=== PATIENT | female | born 1930 | race Caucasian/White ===

== ENCOUNTER 2018-02-18 17:05 | Emergency (ER) | payer MEDICARE, BC ==
[2018-02-18 17:14] VITALS: BP 169/70; PULSE 69; RESP 18; TEMP 98
[2018-02-18] MEDS ORDERED: DIPH,PERTUS(ACELL)TETVAC-LF 0.5 ML VIAL IM ONE (17:35)
--- NOTE | 2018-02-18 17:38 | ED ---
General Adult HPI - General Chief complaint: Extremity Injury, Upper Stated complaint: left arm injury Time Seen by Provider: 02/18/18 17:20 Source: patient, RN notes reviewed Mode of arrival: ambulatory Limitations: no limitations - History of Present Illness Initial comments: 87-year-old female presents to the emergency department for a chief complaint of skin tear 2 days. Patient states she was walking through her house when she bumped her arm on something. Patient denies any pain in the arm besides over the skin tear site. Patient did not sustain any other injuries Patient does not believe her tetanus is up-to-date. Patient has no other complaints at this time including shortness of breath, chest pain, abdominal pain, nausea or vomiting, headache, or visual changes. - Related Data Allergies Allergy/AdvReac Type Severity Reaction Status Date / Time No Known Allergies Allergy Verified 02/18/18 17:14 Review of Systems ROS Statement: Those systems with pertinent positive or pertinent negative responses have been documented in the HPI. ROS Other: All systems not noted in ROS Statement are negative. 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 Absent: scleral icterus, conjunctival injection ENT exam: Present: normal exam, mucous membranes moist Neck exam: Present: normal inspection. Absent: tenderness, meningismus, lymphadenopathy Respiratory exam: Present: normal lung sounds bilaterally. Absent: respiratory distress, wheezes, rales, rhonchi, stridor Cardiovascular Exam: Present: regular rate, normal rhythm, normal heart sounds. Absent: systolic murmur, diastolic murmur, rubs, gallop, clicks Extremities exam: Present: full ROM (Full range of motion of the left upper extremities including the elbow wrist and digits), tenderness (No tenderness in the elbow forearm wrist or hand), normal capillary refill (Capillary refill less than 2 seconds and radial pulse 2+ in the left upper extremity), other ( There is a 2.5 cm skin tear with mild ecchymosis about 5 cm x 4 cm surrounding. No spreading redness or cellulitis. No streaking redness up the arm. No drainage.). Absent: joint swelling Course Vital Signs 02/18/18 17:11 Temperature 98.0 F Pulse Rate 69 Respiratory 18 Rate Blood Pressure 169/70 O2 Sat by Pulse 97 Oximetry Medical Decision Making - Medical Decision Making 87-year-old female since to the emergency department for a chief complaint of skin tear over the left arm. Patient has full range motion of the elbow wrist and hand. No tenderness. Patient has a 2.5 cm skin tear. No spreading redness streaking redness or drainage. No signs of infection. Patient was given tetanus in the emergency department. Wound was cleaned and Steri- Stripped closed by Ebony LOPEZ. Patient was educated to let Steri-Strips fall off on their own. She will keep it clean and dry. She will follow up with primary care in 1-2 days. Discussed return parameters including those for infection extensively with patient. Disposition Clinical Impression: Skin tear Disposition: HOME SELF-CARE Condition: Good Instructions: Skin Tear (ED) Additional Instructions: Please let Steri-Strips fall off on their own. Please keep the area clean and dry. Please return to the emergency department if you have any worsening symptoms or signs of infection such as spreading redness or streaking redness up the arm. Otherwise follow-up with primary care in 1-2 days Is patient prescribed a controlled substance at d/c from ED?: No Referrals: Leeanne Carpenter DO [Primary Care Provider] - 1-2 days Time of Disposition: 17:58
== END 2018-02-18 18:05 | disposition home or self-care (01) ==
LOC: EC 17:05
DX: S41.112A Laceration without foreign body of left upper arm, initial encounter (principal); Z23 Encounter for immunization; W22.8XXA Striking against or struck by other objects, initial encounter; Y93.01 Activity, walking, marching and hiking; Y92.009 Unspecified place in unspecified non-institutional (private) residence as the place of occurrence of the external cause
CPT/HCPCS: 12001; 90471; 90715; 99283

== ENCOUNTER 2018-07-31 16:09 | Inpatient (IN) | payer MEDICARE, BC ==
[2018-07-31] MEDS ORDERED: MORPHINE SULFATE 4 MG/ML SYRINGE IVP STA (17:21)
[2018-07-31] MEDS ORDERED: ONDANSETRON 4 MG/2 ML VIAL IVP STA (17:21)
--- NOTE | 2018-07-31 17:59 | ED ---
Fall HPI - General Chief Complaint: Fall Stated Complaint: FALL Time Seen by Provider: 07/31/18 17:00 Source: patient, EMS Mode of arrival: EMS - History of Present Illness Initial Comments: 87-year-old female patient presents to the emergency department today for evaluation of left hip pain after expressing a fall. Patient states around 3: 00 she was coming into the house when she attempted to use her cane to open the door, states that the cane pushed her backwards and she fell landing on the left hip. Patient denies hitting her head or losing consciousness during the fall. She states that she did land on her elbows and did sustain wounds however she denies any difficulty with range of motion to the elbows her significant pain to the joints. She denies any numbness or tingling to her upper or lower extremities. She denies any headache, dizziness, weakness, nausea, vomiting, back pain, or neck pain. States her last tetanus vaccine was in the summer of 2017. Patient denies any chest pain, shortness of breath, abdominal pain, or difficulties with bowel movements or urination. - Related Data Home Medications Medication Instructions Recorded Confirmed Aspirin [[place] Aspirin EC] 81 mg PO HS 07/31/18 07/31/18 Atorvastatin [Lipitor] 40 mg PO HS 07/31/18 07/31/18 Biotin 10,000 mcg PO DAILY 07/31/18 07/31/18 Calcium Carbonate [Calcium] 600 mg PO DAILY 07/31/18 07/31/18 Cetirizine HCl [Zyrtec] 10 mg PO HS 07/31/18 07/31/18 Clopidogrel Bisulfate [Plavix] 75 mg PO DAILY 07/31/18 07/31/18 Gabapentin [Neurontin] 100 mg PO BID 07/31/18 07/31/18 HYDROcodone/APAP 5-325MG [[place] 1 - 2 tab PO HS PRN 07/31/18 07/31/18 5-325] Inulin/Chromium Picolinate [Fiber 1 tab PO DAILY 07/31/18 07/31/18 Gummies Chew] L.acidoph,Paracasei, B.lactis 1 cap PO DAILY 07/31/18 07/31/18 [Probiotic] Levothyroxine Sodium [Synthroid] 75 mcg PO DAILY 07/31/18 07/31/18 Melatonin 3 mg PO HS 07/31/18 07/31/18 Multivit/Folic Acid/Vit K1 1 tab PO DAILY 07/31/18 07/31/18 [One-A-Day Women's 50 Plus Tab] Primidone [Mysoline] 50 - 100 mg PO HS 07/31/18 07/31/18 amLODIPine [Norvasc] 5 mg PO DAILY 07/31/18 07/31/18 Allergies Allergy/AdvReac Type Severity Reaction Status Date / Time No Known Allergies Allergy Verified 07/31/18 19:53 Review of Systems ROS Statement: Those systems with pertinent positive or pertinent negative responses have been documented in the HPI. ROS Other: All systems not noted in ROS Statement are negative. 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 Vital signs upon presentation are temperature 96.8F, pulse 76, respirations 16, blood pressure 172/81, pulse ox 100% on room air) Head exam: Present: atraumatic, normocephalic, normal inspection Eye exam: Present: normal appearance, PERRL, EOMI. Absent: scleral icterus, conjunctival injection, periorbital swelling ENT exam: Present: normal exam, normal oropharynx, mucous membranes moist Neck exam: Present: normal inspection, full ROM, other (Nontender, no step-off, no deformity to firm midline palpation of the posterior cervical spine. Full range of motion without pain or limitation.). Absent: tenderness, meningismus, lymphadenopathy Respiratory exam: Present: normal lung sounds bilaterally. Absent: respiratory distress, wheezes, rales, rhonchi, stridor Cardiovascular Exam: Present: regular rate, normal rhythm, normal heart sounds. Absent: systolic murmur, diastolic murmur, rubs, gallop, clicks GI/Abdominal exam: Present: soft, normal bowel sounds. Absent: distended, tenderness, guarding, rebound, rigid Extremities exam: Present: full ROM, tenderness (Tenderness over the left anterior hip joint.), normal capillary refill, other (Patient has skin tear to the bilateral extensor surface of the elbow. Patient has full range of motion to the elbow with no bony tenderness. Skin to the upper extremities is pink, warm, and dry. Cap refills less than 3 seconds. Radial pulses are 2+ and equal bilaterally. Patient has external rotation and shortening of the left leg. Tenderness over the left anterior hip joint. Skin to the left leg is pink , warm, and dry. Cap refills less than 3 seconds. Pedal and posttibial pulses are 2+ and equal bilaterally.). Absent: normal inspection, pedal edema, joint swelling, calf tenderness Back exam: Present: normal inspection, other (Nontender, no step-off, no deformity to firm midline palpation of the thoracic and lumbar vertebrae. Full range of motion without pain or limitation.). Absent: vertebral tenderness Neurological exam: Present: alert, oriented X3, CN II-XII intact Psychiatric exam: Present: normal affect, normal mood Skin exam: Present: warm, dry, intact, normal color. Absent: rash Course Vital Signs 07/31/18 07/31/18 07/31/18 16:14 18:02 19:55 Temperature 96.8 F L 97.0 F L Pulse Rate 76 77 74 Respiratory 16 16 16 Rate Blood Pressure 172/81 136/64 152/61 O2 Sat by Pulse 100 98 97 Oximetry Medical Decision Making - Medical Decision Making 87-year-old female patient presented to the emergency department today for evaluation of left hip pain after expressing a fall at home. Physical examination did reveal tenderness over the left anterior hip joint. Patient did have some shortening or rotation of the leg. Neurovascular status is intact. X-ray did show an intertrochanteric fracture to the left hip. Labs, EKG, chest x-ray were obtained for presurgical clearance. I did discuss the case with Dr. jose who feels the patient is stable for surgery. Dr. Skelton is the accepting physician and will perform surgery tomorrow at 12:00. Patient and family are aware of plan and are agreeable. - Lab Data Result diagrams: 07/31/18 16:26 07/31/18 16:26 Lab Results 07/31/18 07/31/18 07/31/18 Range/Units 16:26 16:26 16:26 WBC 5.9 (3.8-10.6) k/uL RBC 4.13 (3.80-5.40) m/uL Hgb 12.3 (11.4-16.0) gm/dL Hct 38.0 (34.0-46.0) % MCV 91.9 (80.0-100.0) fL MCH 29.6 (25.0-35.0) pg MCHC 32.3 (31.0-37.0) g/dL RDW 13.1 (11.5-15.5) % Plt Count 185 (150-450) k/uL Neutrophils % 59 % Lymphocytes % 31 % Monocytes % 5 % Eosinophils % 3 % Basophils % 0 % Neutrophils # 3.5 (1.3-7.7) k/uL Lymphocytes # 1.8 (1.0-4.8) k/uL Monocytes # 0.3 (0-1.0) k/uL Eosinophils # 0.2 (0-0.7) k/uL Basophils # 0.0 (0-0.2) k/uL PT 10.6 (9.0-12.0) sec INR 1.0 (<1.2) APTT 25.1 (22.0-30.0) sec Sodium 136 L (137-145) mmol/L Potassium 4.4 (3.5-5.1) mmol/L Chloride 102 (98-107) mmol/L Carbon Dioxide 25 (22-30) mmol/L Anion Gap 9 mmol/L BUN 11 (7-17) mg/dL Creatinine 0.67 (0.52-1.04) mg/dL Est GFR (CKD-EPI)AfAm >90 (>60 ml/min/1.73 sqM) Est GFR (CKD-EPI)NonAf 79 (>60 ml/min/1.73 sqM) Glucose 103 H (74-99) mg/dL Calcium 9.1 (8.4-10.2) mg/dL Total Bilirubin 0.6 (0.2-1.3) mg/dL AST 39 H (14-36) U/L ALT 42 (9-52) U/L Alkaline Phosphatase 89 (38-126) U/L Total Protein 7.4 (6.3-8.2) g/dL Albumin 4.3 (3.5-5.0) g/dL Urine Color Urine Appearance (Clear) Urine pH (5.0-8.0) Ur Specific [place] (1.001-1.035) Urine Protein (Negative) Urine Glucose (UA) (Negative) Urine Ketones (Negative) Urine Blood (Negative) Urine Nitrite (Negative) Urine Bilirubin (Negative) Urine Urobilinogen (<2.0) mg/dL Ur Leukocyte Esterase (Negative) Urine RBC (0-5) /hpf Urine WBC (0-5) /hpf Urine Mucus (None) /hpf Blood Type Blood Type Confirm Blood Type Recheck Antibody Screen Spec Expiration Date 07/31/18 07/31/18 07/31/18 Range/Units 16:26 17:50 18:30 WBC (3.8-10.6) k/uL RBC (3.80-5.40) m/uL Hgb (11.4-16.0) gm/dL Hct (34.0-46.0) % MCV (80.0-100.0) fL MCH (25.0-35.0) pg MCHC (31.0-37.0) g/dL RDW (11.5-15.5) % Plt Count (150-450) k/uL Neutrophils % % Lymphocytes % % Monocytes % % Eosinophils % % Basophils % % Neutrophils # (1.3-7.7) k/uL Lymphocytes # (1.0-4.8) k/uL Monocytes # (0-1.0) k/uL Eosinophils # (0-0.7) k/uL Basophils # (0-0.2) k/uL PT (9.0-12.0) sec INR (<1.2) APTT (22.0-30.0) sec Sodium (137-145) mmol/L Potassium (3.5-5.1) mmol/L Chloride (98-107) mmol/L Carbon Dioxide (22-30) mmol/L Anion Gap mmol/L BUN (7-17) mg/dL Creatinine (0.52-1.04) mg/dL Est GFR (CKD-EPI)AfAm (>60 ml/min/1.73 sqM) Est GFR (CKD-EPI)NonAf (>60 ml/min/1.73 sqM) Glucose (74-99) mg/dL Calcium (8.4-10.2) mg/dL Total Bilirubin (0.2-1.3) mg/dL AST (14-36) U/L ALT (9-52) U/L Alkaline Phosphatase (38-126) U/L Total Protein (6.3-8.2) g/dL Albumin (3.5-5.0) g/dL Urine Color Light Yellow Urine Appearance Clear (Clear) Urine pH 7.0 (5.0-8.0) Ur Specific [place] 1.005 (1.001-1.035) Urine Protein Negative (Negative) Urine Glucose (UA) Negative (Negative) Urine Ketones Negative (Negative) Urine Blood Negative (Negative) Urine Nitrite Negative (Negative) Urine Bilirubin Negative (Negative) Urine Urobilinogen <2.0 (<2.0) mg/dL Ur Leukocyte Esterase Trace H (Negative) Urine RBC 1 (0-5) /hpf Urine WBC 4 (0-5) /hpf Urine Mucus Rare H (None) /hpf Blood Type O Positive Blood Type Confirm O Positive Blood Type Recheck CABO Indicated Antibody Screen NEGATIVE Spec Expiration Date 08/03/20182325 - EKG Data -: EKG Interpreted by Al EKG Comments: EKG obtained in 1934 shows sinus rhythm with frequent PVCs. Left axis deviation. Ventricular rate is 75, WV interval 200, QR moravian 90, QT 410, QTC 457. No evidence of ST elevation or depression. - Radiology Data Radiology results: report reviewed, image reviewed Single AP view of the pelvis and 2 views of the left hip are obtained. Report was reviewed in its entirety. Impression by Dr. Hernandez shows intertrochanteric fracture described to the proximal left femur. One view x-ray of the chest is obtained. Report was reviewed in its entirety. Impression by Dr. Hernandez shows no acute process. Disposition Clinical Impression: Intertrochanteric fracture of left hip Disposition: ADMITTED IP TO THIS [facility] Condition: Serious Decision to Admit Reason: Admit from EC Decision Date: 07/31/18 Decision Time: 20:07
[2018-07-31 18:20] LABS: Appearance,Urine Clear (Clear); Bilirubin,Urine Negative (Negative); Blood,Urine Negative (Negative); Color,Urine Light Yellow; Glucose,Urine (UA) Negative (Negative); Ketones,Urine Negative (Negative); Leukocyte Esterase,Urine Trace (Negative); Mucus,Urine Rare /hpf; Nitrite,Urine Negative (Negative); Protein,Urine Negative (Negative); RBC,Urine 1 /hpf (0-5); Specific Gravity,Urine 1.005 (1.001-1.035); Urobilinogen,Urine <2.0 mg/dL (<2.0); WBC,Urine 4 /hpf (0-5)
--- NOTE | 2018-07-31 18:33 | XR ---
EXAMINATION TYPE: XR Hip LT and AP Pelvis DATE OF EXAM: 07/31/2018 COMPARISON: NONE HISTORY: Pain TECHNIQUE: A single AP view of the pelvis is obtained. Two views of the left hip are obtained. FINDINGS: There is no acute fracture/dislocation evident in the pelvis. The hip and sacroiliac join ts appear symmetric and unremarkable. The overlying soft tissue appears unremarkable. Arthropathy no colt in the right hip, there may be underlying femoral acetabular impingement. Surgical clips present in the right lower quadrant. Two views of left hip show intertrochanteric fracture with displacement of the lesser trochanter. No focal lytic or sclerotic lesion seen in the proximal left femur. Arthropathy changes are present wi thin the left hip. There is associated soft tissue swelling. The overlying soft tissue is unremarkabl e. IMPRESSION: Intertrochanteric fracture as described proximal left femur, correlate for appropriate hi story.
[2018-07-31 18:52] LABS: Basophils % (A) 0 %; Eosinophils # (A) 0.2 k/uL (0-0.7); Eosinophils % (A) 3 %; HGB 12.3 gm/dL (11.4-16.0); Lymphocytes # (A) 1.8 k/uL (1.0-4.8); Lymphocytes % (A) 31 %; MCH 29.6 pg (25.0-35.0); MCHC 32.3 g/dL (31.0-37.0); MCV 91.9 fL (80.0-100.0); Mean Platelet Volume 6.5; Monocytes # (A) 0.3 k/uL (0-1.0); Monocytes % (A) 5 %; Neutrophils # (A) 3.5 k/uL (1.3-7.7); Neutrophils % (A) 59 %; Platelet Count 185 k/uL (150-450); RBC 4.13 m/uL (3.80-5.40); RDW 13.1 % (11.5-15.5); WBC 5.9 k/uL (3.8-10.6)
[2018-07-31] MEDS ORDERED: ONDANSETRON 4 MG/2 ML VIAL IVP PRN (18:55)
[2018-07-31] MEDS ORDERED: NALOXONE 0.4 MG/ML 1 ML VIAL IV PRN (18:55)
[2018-07-31 18:59] LABS: Partial Thromboplastin Time 25.1 sec (22.0-30.0); Prothrombin Time 10.6 sec (9.0-12.0)
[2018-07-31 19:01] LABS: ALT 42 U/L (9-52); AST 39 U/L (14-36); Albumin 4.3 g/dL (3.5-5.0); Alkaline Phosphatase 89 U/L (38-126); Anion Gap 9 mmol/L; Blood Urea Nitrogen 11 mg/dL (7-17); Calcium 9.1 mg/dL (8.4-10.2); Carbon Dioxide 25 mmol/L (22-30); Chloride 102 mmol/L (98-107); Glucose 103 mg/dL (74-99); Sodium 136 mmol/L (137-145); Total Bilirubin 0.6 mg/dL (0.2-1.3); Total Protein 7.4 g/dL (6.3-8.2)
[2018-07-31 19:16] LABS: Potassium 4.4 mmol/L (3.5-5.1)
--- NOTE | 2018-07-31 19:39 | XR ---
EXAMINATION TYPE: XR chest 1V portable DATE OF EXAM: 07/31/2018 COMPARISON: NONE HISTORY: Trauma and pain TECHNIQUE: Single frontal view of the chest is obtained. FINDINGS: There is no focal air space opacity, pleural effusion, or pneumothorax seen. The cardiac silhouette size is within normal limits. The osseous structures are intact. There is overlying glenn fact. Surgical clips in the right upper quadrant. The aorta is dense. IMPRESSION: No acute process.
[2018-07-31] MEDS: SODIUM CHLORIDE 0.9% 1,000 ML IV SCH (19:50)
[2018-07-31] MEDS: MORPHINE SULFATE 4 MG/ML SYRINGE IV PRN (21:50)
[2018-07-31] MEDS: LORATADINE 10 MG TAB PO SCH (22:09)
[2018-07-31] MEDS: GABAPENTIN 100 MG CAP PO SCH (22:09)
[2018-07-31] MEDS: ATORVASTATIN 40 MG TAB PO SCH (22:09)
[2018-07-31] MEDS: MELATONIN 3 MG TABLET PO SCH (22:09)
[2018-07-31] MEDS: PRIMIDONE 50 MG TAB PO SCH (22:09)
[2018-08-01] MEDS: MORPHINE SULFATE 4 MG/ML SYRINGE IV PRN ×2 (02:13→11:47)
[2018-08-01] MEDS: LEVOTHYROXINE 75 MCG TAB PO SCH (04:57)
[2018-08-01] MEDS ORDERED: NON-FORMULARY DRUG (Inulin/Chromium Picolinate [Fiber Gummies Chew] 1 TAB) PO SCH (09:00)
[2018-08-01] MEDS ORDERED: NON-FORMULARY DRUG (Biotin [Biotin] 10,000 MCG) PO SCH (09:00)
[2018-08-01] MEDS: GABAPENTIN 100 MG CAP PO SCH ×2 (09:26→20:11)
[2018-08-01] MEDS: amLODIPine 5 MG TAB PO SCH (09:26)
[2018-08-01] MEDS: CALCIUM CARBONATE 500 MG CHEWABLE PO SCH (09:26)
[2018-08-01] MEDS: LIPASE 5,000/PROTEASE 17,000/AMYLASE 24,000 PO SCH (09:26)
--- NOTE | 2018-08-01 10:49 | P.HPOR ---
History of Present Illness H&P Date: 08/01/18 Chief Complaint: Left hip fracture This is a very pleasant 87-year-old female with a past medical history of CVA, 100% blockage of the carotid artery, aortic valve disease that presented to the emergency department last night with complaints of left hip pain following a fall. Patient states she was coming in the house after getting the mail and was trying to close a door with her cane when she lost her footing and fell. Patient states she landed on her left hip. She also fell onto her elbows. She denies hitting her head. She did not lose consciousness. She was not able to get up, she required help. She was unable to ambulate after the fall. Patient subsequently presented to the [facility] ED for evaluation, where she was found to have a left intertrochanteric hip fracture. Currently, patient states she has pain diffusely in the left hip, she states this pain is manageable if she does not move the hip. She denies chest pain, shortness of breath, nausea, vomiting, dizziness, back pain, or neck pain. Review of Systems Please see HPI. 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 History of Any Multi-Drug Resistant Organisms: None Reported Past Surgical History: Appendectomy, Cholecystectomy, Orthopedic Surgery Additional Past Surgical History / Comment(s): Left shoulder replacement Past Anesthesia/Blood Transfusion Reactions: No Reported Reaction Past Psychological History: No Psychological Hx Reported Smoking Status: Never smoker Past Alcohol Use History: Occasional Past Drug Use History: None Reported - Past Family History Mother Family Medical History: Cancer Father Family Medical History: Cancer Medications and Allergies Home Medications Medication Instructions Recorded Confirmed Type Aspirin [[place] Aspirin EC] 81 mg PO HS 07/31/18 07/31/18 History Atorvastatin [Lipitor] 40 mg PO HS 07/31/18 07/31/18 History Biotin 10,000 mcg PO DAILY 07/31/18 07/31/18 History Calcium Carbonate [Calcium] 600 mg PO DAILY 07/31/18 07/31/18 History Cetirizine HCl [Zyrtec] 10 mg PO HS 07/31/18 07/31/18 History Clopidogrel Bisulfate [Plavix] 75 mg PO DAILY 07/31/18 07/31/18 History Gabapentin [Neurontin] 100 mg PO BID 07/31/18 07/31/18 History HYDROcodone/APAP 5-325MG [[place] 1 - 2 tab PO HS PRN 07/31/18 07/31/18 History 5-325] Inulin/Chromium Picolinate [Fiber 1 tab PO DAILY 07/31/18 07/31/18 History Gummies Chew] L.acidoph,Paracasei, B.lactis 1 cap PO DAILY 07/31/18 07/31/18 History [Probiotic] Levothyroxine Sodium [Synthroid] 75 mcg PO DAILY 07/31/18 07/31/18 History Melatonin 3 mg PO HS 07/31/18 07/31/18 History Multivit/Folic Acid/Vit K1 1 tab PO DAILY 07/31/18 07/31/18 History [One-A-Day Women's 50 Plus Tab] Primidone [Mysoline] 50 - 100 mg PO HS 07/31/18 07/31/18 History amLODIPine [Norvasc] 5 mg PO DAILY 07/31/18 07/31/18 History Allergies Allergy/AdvReac Type Severity Reaction Status Date / Time No Known Allergies Allergy Verified 07/31/18 19:53 Physical Examination On examination, the patient is sitting up in bed in no acute distress. Patient is alert and orientated x3. On inspection of the left hip, there is no ecchymosis or laceration of the anterior hip. Left lower extremity is externally rotated. There is pain on palpation of the posterior hip. Neurovascular is intact of the left lower extremity. Sensation is intact to light touch of the left lower extremity. Dorsalis pedis pulse +2 bilaterally. Capillary refill less than 3 seconds on the great toes bilaterally. On inspection of the right and left elbows, there are clean and intact bandages in place. No pain with ROM. On inspection of the left wrist, there is ecchymosis present. Left radial pulse +2. No pain on palpation of the left wrist. Patient able to perform full ROM of the left wrist, no pain with PROM of the wrist. Results Left Hip/pelvis xray 05/31/19 - Left intertrochanteric fracture of the proximal femur - Labs Labs: Abnormal Lab Results - Last 24 Hours (Table) 01/12/19 01/12/19 Range/Units 16:26 17:50 Sodium 136 L (137-145) mmol/L Glucose 103 H (74-99) mg/dL AST 39 H (14-36) U/L Ur Leukocyte Esterase Trace H (Negative) Urine Mucus Rare H (None) /hpf H & H 07/31/18 Range/Units 16:26 Hgb 12.3 (11.4-16.0) gm/dL Hct 38.0 (34.0-46.0) % Coagulation 07/31/18 Range/Units 16:26 INR 1.0 (<1.2) Result Diagrams: 07/31/18 16:26 07/31/18 16:26 Assessment and Plan Assessment: Left hip intertrochanteric fracture Plan: - Discussed clinical and xray findings with the patient and family. Explained this fracture requires surgery. Patient and family verbalized understanding and agreement. - We will plan for a left short IT nail today with Dr. Skelton, pending medical clearance and consent. - Patient to remain non-weight bearing of the left lower extremity, NPO diet. - Patient discussed with Dr. Skelton
[2018-08-01] MEDS: MULTIVITAMINS, THERA 1 EACH TAB PO SCH (11:45)
[2018-08-01] MEDS ORDERED: PROPOFOL 10 MG/ML 20 ML VIAL IV ONE (12:30)
[2018-08-01] MEDS ORDERED: fentaNYL (PF) 50 MCG/ML 2 ML AMP ONE (12:30)
[2018-08-01] MEDS ORDERED: GLYCOPYRROLATE 0.2 MG/ML 2 ML VIAL ONE (12:30)
[2018-08-01] MEDS ORDERED: NEOSTIGMINE 1 MG/ML 10 ML VIAL ONE (12:30)
[2018-08-01] MEDS ORDERED: PHENYLEPHRINE-0.9% NACL SYG 1 MG/10 ML SYRINGE ONE (12:30)
[2018-08-01] MEDS ORDERED: MIDAZOLAM 2 MG/2 ML VIAL ONE (12:30)
[2018-08-01] MEDS ORDERED: ONDANSETRON 4 MG/2 ML VIAL ONE (12:30)
[2018-08-01] MEDS ORDERED: ROCURONIUM BROMIDE 10 MG/ML 10 ML VIAL IV ONE (12:30)
[2018-08-01] MEDS ORDERED: LIDOCAINE 1% INJ 10MG/ML (20 ML MDV) ONE (12:30)
[2018-08-01] MEDS ORDERED: IV FLUID CONTINUATION 900 ML IV ONE (12:30)
--- NOTE | 2018-08-01 13:52 | FL ---
FLUOROSCOPY 1 minute and 30 seconds of fluoroscopy time were utilized during left hip pinning. 2 images document the procedure.
[2018-08-01] MEDS: MORPHINE SULFATE 4 MG/ML SYRINGE IVP ONE ×3 (14:10→14:33)
--- NOTE | 2018-08-01 14:19 | P.OP ---
Date of Procedure: 08/01/18 Preoperative Diagnosis: 1. Minimally displaced left basocervical femoral neck fracture 2. Pre-existing and asymptomatic left hip arthritis 3. CVA 4. Left carotid stenosis 5. Thyroid disorder 6. Aortic valve pathology Postoperative Diagnosis: Same Procedure(s) Performed: Operative fixation of left basicervical intertrochanteric hip fracture with short intramedullary hip screw Implants: Synthes TFN Anesthesia: GETA Surgeon: Felipe Skelton [employer] Representatives #1: Laverne Moralez Estimated Blood Loss (ml): 50 IV fluids (ml): 700 Pathology: other (reamings sent to pathology) Condition: stable Disposition: PACU Indications for Procedure: The patient is a very pleasant 87-year-old female who sustained a ground-level fall yesterday and was brought to the ER and found to have a left hip fracture. She was admitted under my care and cleared for surgery by internal medicine. I met with the patient and her family preoperatively to discuss treatment options. Her x-rays showed a minimally displaced basocervical intertrochanteric hip fracture and pre-existing hip arthritis. The patient states that she did not have any problems with her hip prior to surgery, but did have knee arthritis. She has been seeing Dr. Tommy Angeles for her knees. Since her hip pain was asymptomatic prior to surgery and her hip fracture is minimally displaced I recommended operative fixation of her hip fracture with an intramedullary hip screw as opposed to arthroplasty. The patient and her family agreed to this. We discussed potential risks and competitions of surgery including but not limited to risk of anesthesia, superficial infection, deep infection, delayed wound healing, intraoperative fracture, postoperative fracture, failure of the implant with varus collapse of the hip, symptomatic hip arthritis, DVT, PE, acute coronary event, stroke, difficulty ambulating following surgery, urinary tract infection, pneumonia, and inability to ambulate , decreased level of function following surgery, and possibly loss of life or limb. The patient and her family voiced understanding of these potential complications and also acknowledge other less common complications. The provided their consent to go forward with surgery. Description of Procedure: The patient was identified in preoperative holding and the correct left leg was marked with my initials. I reviewed the consent form with the patient and her family. All their questions were answered. The patient was then brought back to the operating room. While still on her gurney a general anesthetic and preoperative antibiotics were administered. Once the patient was under anesthesia she was carefully transferred from the [facility] onto a fracture table. A perineal post was placed. Due to her right hip arthritis and limited flexibility of the hip the right leg was extended and secured to the beam of the fracture table with a pillow and Coban. The affected left leg was placed in the boot of the fracture table and secured with an Vasu wrap. Prior to starting surgery timeout was performed identifying the correct patient, operative extremity, and procedure. At this point a gentle closed reduction of the hip was performed with a combination of longitudinal traction, internal rotation, and adduction. An AP and lateral fluoroscopic image were taken both to confirm reduction of the fracture and access of appropriate imaging. The left leg was then prepped and draped in the standard sterile fashion. I began by making a 1 inch incision in line with the proximal femur just proximal to the greater trochanter. Dissection was carried down carefully through the subcutaneous tissue. A guidepin was placed just medial to the tip of the greater trochanter on the AP view and centered down the shaft of the femur on the lateral view. The K wire was driven to the level of lesser trochanter. The incision was widened and opening reamer was used to gain access to the proximal canal. A short TFN nail was then dispensed and hooked up to the targeting arm I verified that both slots in the nail lined up with the appropriate slots on the targeting arm. The nail was then gently tapped into place. The trocar was placed through the targeting arm and down to the lateral skin. Skin incision made with a scalpel and dissection was carried down to the subcutaneous tissue and the IT band was likewise incised. The trocar was brought down to the lateral aspect of the femur. A guidepin was then brought to the center center position on both views. It was measured to 95 so a 90 mm helical blade was dispensed. The reamer was set to 90 mm and a path was created over the guide pin up into the femoral head. The helical blade was then gently tapped into place. The set screw was brought all the way down proximally and then backed off half a turn to allow for compression. The trocar was then turned clockwise to generate compression across the fracture. The trocar for the helical blade was then removed. The trocar for the distal interlocking screw was then placed on the lateral cortex of the femur. A drill was used and a solid 36 mm distal interlocking screw was placed. The targeting arm was removed and final fluoroscopic images were taken. Both wounds were copiously irrigated and closed in layers. A sterile dressing consisting of Adaptic, 4 x 4, and medium Tegaderm was applied over both incisions. The patient was awoken from her anesthetic, transferred to a gurney, and brought to the recovery room having tied the procedure well. Laverne Moralez PAC was required as a skilled tutoring assistant for patient positioning, surgical exposure, reduction of fracture, placement of hardware, and closure of wounds. Plan: The patient can weight-bear as tolerated on her left leg. She can continue her Plavix. Due to her being on Plavix I will defer to internal medicine for DVT prophylaxis, I usually use Lovenox 40 mg daily 4 weeks. Her dressing changes can start on postoperative day #2. Discharge planning is pending.
[2018-08-01] MEDS ORDERED: SODIUM CHLORIDE 0.9% 1,000 ML IV ONE (14:48)
[2018-08-01] MEDS: ceFAZolin IN SWFI 2 GM/20 ML SYRINGE IVP SCH ×2 (16:04→23:20)
[2018-08-01 18:09] LABS: Basophils % (A) 0 %; Eosinophils # (A) 0.1 k/uL (0-0.7); Eosinophils % (A) 1 %; HCT 28.8 % (34.0-46.0); Lymphocytes # (A) 0.7 k/uL (1.0-4.8); Lymphocytes % (A) 5 %; MCH 30.4 pg (25.0-35.0); MCHC 32.3 g/dL (31.0-37.0); MCV 94.2 fL (80.0-100.0); Mean Platelet Volume 6.6; Monocytes # (A) 0.6 k/uL (0-1.0); Monocytes % (A) 4 %; Neutrophils # (A) 12.4 k/uL (1.3-7.7); Neutrophils % (A) 90 %; Platelet Count 188 k/uL (150-450); RBC 3.06 m/uL (3.80-5.40); RDW 12.9 % (11.5-15.5); WBC 13.8 k/uL (3.8-10.6)
[2018-08-01 18:25] LABS: HGB 9.3 gm/dL (11.4-16.0)
[2018-08-01] MEDS: SODIUM CHLORIDE 0.9% 1,000 ML IV SCH (19:05)
[2018-08-01] MEDS: PRIMIDONE 50 MG TAB PO SCH (20:11)
[2018-08-01] MEDS: ATORVASTATIN 40 MG TAB PO SCH (20:11)
[2018-08-01] MEDS: SENNOSIDES-DOCUSATE SODIUM 1 EACH TAB PO SCH (20:11)
[2018-08-01] MEDS: HYDROcodone/APAP 5-325MG 1 EACH TAB PO PRN (20:12)
[2018-08-01] MEDS: LORATADINE 10 MG TAB PO SCH (20:12)
[2018-08-01] MEDS: MELATONIN 3 MG TABLET PO SCH (20:12)
--- NOTE | 2018-08-01 22:28 | CONS ---
CONSULTATION DATE OF CONSULTATION: August 01, 2018. REASON FOR CONSULTATION: Medical management requested by Dr. Skelton. CONSULTATION: This is a pleasant 87-year-old patient of Dr. Carpenter. Chronic stable medical conditions include hypertension, hyperlipidemia, hypothyroid, peripheral neuropathy, right carotid 100% occluded and also osteoarthritis of the knees. The patient yesterday took her meal and came back to the house. She had meal in the left hand and opened the door knob with the left hand. With a walking stick, she tried to push the door in and then in the process she fell backwards resulting in intertrochanteric fracture of the left femur. I had reviewed the case earlier and okayed the patient to proceed for surgery given that she was a moderate risk with no absolute contraindication to proceed for surgery. Post procedure patient lying in bed. The patient's pain is controlled. No nausea, vomiting. No cardiac symptoms. Denies any other cardiac history. REVIEW OF SYSTEMS: CONSTITUTIONAL: Tired. HEENT: None. RESPIRATORY: None. CARDIOVASCULAR: None. GASTROINTESTINAL: None. GENITOURINARY: None. MUSCULOSKELETAL: Arthritic pain in joints especially the knees and hip. DERMATOLOGICAL, HEMATOLOGIC, LYMPHATIC: none. PSYCHIATRY none. NEUROLOGICAL: Numbness and tingling in hands and feet. PAST MEDICAL HISTORY: Of hypertension, hyperlipidemia, hypothyroid, peripheral neuropathy, right carotid 100% occluded, osteoarthritis. PAST SURGICAL HISTORY: Appendectomy cholecystectomy, left shoulder replacement. SOCIAL HISTORY: The patient has an elderly at home. Does not smoke. Drinks alcohol occasionally. FAMILY HISTORY: Reviewed, noncontributory to presentation. HOME MEDICATIONS: 1. Norvasc 5 mg a day. 2. Once a day Woman's 50+ 1 tablet a day. 3. Melatonin 3 mg q.h.s. 4. Synthroid 75 mcg a day. 5. Probiotic 1 capsule p.o. daily. 6. Fiber gummies 1 tablet p.o. daily. 7. Upatoi 5 1-2 tablets q.h.s. p.r.n. 8. Neurontin 100 mg b.i.d. 9. Plavix 75 mg daily. 10.Calcium 600 mg p.o. daily. 11.Biotin 51234 mcg p.o. daily. 12.Mysoline 50-100 mcg p.o. q.h.s. 13.Zyrtec 10 mg q.h.s. 14.Aspirin 81 mg at bedtime. 15.Lipitor 20 mg q.h.s. ALLERGIES: None. PHYSICAL EXAMINATION: VITAL SIGNS: Temperature 97.4, pulse 98, respiratory 18, blood pressure 160/73, pulse ox 99 percent on 2 L. GENERAL APPEARANCE: Average built, propped up, comfortable. Glasses on. EYES: Pupils equal. Conjunctivae normal. HEENT: External appearance of nose and ears normal. Oral cavity normal. NECK: JVD not raised. Mass not palpable. RESPIRATORY: Effort normal. LUNGS are clear. CARDIOVASCULAR: 1st and 2nd sounds normal. No edema. ABDOMEN: Soft, nontender. Liver and spleen not palpable. LYMPHATICS: No lymph nodes palpable in the neck or axilla. PSYCHIATRY: Alert and oriented x3. Mood and affect normal. NEUROLOGICAL: Pupils equal. Cranial nerves grossly intact. Power and sensation grossly intact. MUSCULOSKELETAL: Evidence of osteoarthritis in the hands. Dressing over the left hip. INVESTIGATIONS: White count 5.9, hemoglobin 12.3. Post procedure, 9.3. Potassium 4.4. BUN and creatinine are normal. EKG tracing personally reviewed by me shows normal sinus rhythm with some PVCs. Chest x-ray film personally reviewed by me shows some hyperinflation, no infiltrates. Hip x-ray shows left intertrochanteric fracture. ASSESSMENT: 1. Left femur intertrochanteric fracture secondary to fall followed by intramedullary hip screw. 2. Essential hypertension. 3. Hypothyroidism. 4. Peripheral neuropathy. 5. Hyperlipidemia. 6. 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 7. Primary osteoarthritis. PLAN: Patient's home medications will be resumed. Patient also getting gentle hydration. Pain control is in place. Anticoagulation per Dr. Skelton. Otherwise, patient can go back on home dose of aspirin and Plavix. Given that the patient on Plavix do expect more blood loss to have occurred. Care was discussed with the patient and family at the bedside. The patient otherwise medically stable. Thank you Dr. Skelton. Copy to Dr. Leeanne Carpenter. MMALFREDL / SEBASTIAN: [id number] /
[2018-08-02] MEDS: MORPHINE SULFATE 4 MG/ML SYRINGE IV PRN ×2 (03:51→08:23)
[2018-08-02] MEDS: LIPASE 5,000/PROTEASE 17,000/AMYLASE 24,000 PO SCH (08:29)
[2018-08-02] MEDS: GABAPENTIN 100 MG CAP PO SCH ×2 (08:29→21:37)
[2018-08-02] MEDS: CALCIUM CARBONATE 500 MG CHEWABLE PO SCH ×3 (08:29→21:37)
[2018-08-02] MEDS: amLODIPine 5 MG TAB PO SCH (08:29)
[2018-08-02] MEDS: LEVOTHYROXINE 75 MCG TAB PO SCH (08:29)
[2018-08-02] MEDS: HYDROcodone/APAP 5-325MG 1 EACH TAB PO PRN ×3 (11:04→23:08)
--- NOTE | 2018-08-02 12:44 | P.PN ---
Subjective Progress Note Date: 08/02/18 Principal diagnosis: Left intertrochanteric hip fracture status-post short intramedullary hip screw This is a very pleasant 87-year-old female with a past medical history of CVA, 100% blockage of the right carotid artery, aortic valve disease that presented to the emergency department last night with complaints of left hip pain following a fall. Patient states she was coming in the house after getting the mail and was trying to close a door with her cane when she lost her footing and fell. Patient states she landed on her left hip. She also fell onto her elbows. She denies hitting her head. She did not lose consciousness. She was not able to get up, she required help. She was unable to ambulate after the fall. Patient subsequently presented to the [facility] ED for evaluation, where she was found to have a left intertrochanteric hip fracture. Today is post-op day #1. The patient states her pain is well-controlled at the moment. She has tolerated her diet well. She notes mild nausea and "spitting up " although she states this is a normal occurrence for her while eating. Per patient, she has not been up with therapy yet this morning. She denies chest pain, shortness of breath, fevers, chills. Vital signs stable. Objective - Vital Signs Vital signs: Vital Signs Temp 97.6 F 08/02/18 01:13 Pulse 72 08/02/18 01:13 Resp 16 08/02/18 01:13 BP 94/55 08/02/18 01:13 Pulse Ox 94 L 08/02/18 01:13 Intake & Output 08/01/18 08/02/18 08/02/18 18:59 06:59 18:59 Intake Total 940 175 Output Total 450 125 Balance 490 50 Intake: IV 660 Intake, IV Titration 175 Amount Sodium Chloride 0.9% 1, 175 000 ml @ 50 mls/hr IV . Q20H [facility] Rx#:[id number] Oral 280 Output: Urine 400 125 Estimated Blood Loss 50 Other: Voiding Method Indwelling Catheter Indwelling Catheter - Exam On exam, the patient is sitting up in bed in no acute distress. Patient is alert and oriented x3. On inspection of the left hip, there are two surgical dressings in place which are clean, dry, and intact. Dressings are taken down, and there are two surgical incisions which show no signs of infection; there is no erythema or drainage. There is a minimal amount of blood present of the interior of the distal surgical dressing, no active bleeding noted from incision. Calves are soft and nontender bilaterally. Patient has full range of motion of the ankles and toes bilaterally. Neurovascular is intact of the lower extremities bilaterally. Dorsalis pedis pulse +2 bilaterally, brisk capillary refill of great toes bilaterally. - Labs CBC & Chem 7: 08/01/18 17:40 07/31/18 16:26 Labs: Abnormal Lab Results - Last 24 Hours (Table) 08/01/18 08/01/18 Range/Units 16:49 17:40 WBC 13.8 H (3.8-10.6) k/uL RBC 3.06 L (3.80-5.40) m/uL Hgb 9.3 L D (11.4-16.0) gm/dL Hct 28.8 L (34.0-46.0) % Neutrophils # 12.4 H (1.3-7.7) k/uL Lymphocytes # 0.7 L (1.0-4.8) k/uL Vitamin D 25-Hydroxy 26.2 L (30.0-100.0) ng/mL Assessment and Plan Assessment: Left intertrochanteric hip fracture status-post short intramedullary hip screw Plan: - Patient may weight-bear as tolerated on the left leg. Up with assistance, up with a walker. - Continue PT for gait and balance training. - Recommended patient ice and elevate left hip to reduce pain. - Continue current pain regimen. - Anticoagulation per medicine. - Vitamin D 25 hydroxy level low at 26.6, patient started on Vitamin D3 2,000U qd, along with calcium carbonate 500mg TID. - Patient discussed with Dr. Skelton
[2018-08-02] MEDS: MULTIVITAMINS, THERA 1 EACH TAB PO SCH (12:46)
[2018-08-02] MEDS ORDERED: ENOXAPARIN 40 MG/0.4 ML SYRINGE SQ SCH (16:30)
[2018-08-02] MEDS: SODIUM CHLORIDE 0.9% 1,000 ML IV SCH ×2 (21:01→23:21)
[2018-08-02] MEDS: SENNOSIDES-DOCUSATE SODIUM 1 EACH TAB PO SCH (21:37)
[2018-08-02] MEDS: ATORVASTATIN 40 MG TAB PO SCH (21:37)
[2018-08-02] MEDS: PRIMIDONE 50 MG TAB PO SCH (21:37)
[2018-08-02] MEDS: MELATONIN 3 MG TABLET PO SCH (21:38)
[2018-08-02] MEDS: LORATADINE 10 MG TAB PO SCH (21:38)
--- NOTE | 2018-08-02 23:40 | PN ---
PROGRESS NOTE DATE OF SERVICE: 08/02/2018. PRESENTING COMPLAINT: Right femur fracture. INTERVAL HISTORY: Patient is status post femur fracture repair. Doing better this morning. Did actually work with therapy. Sitting up in a chair. Pain is controlled. Did tolerate some breakfast. No nausea, vomiting. No chest pain or shortness of breath. REVIEW OF SYSTEMS: Done for constitutional, cardiovascular, GI, pulmonary; relevant findings as above. CURRENT MEDICATIONS: Reviewed. PHYSICAL EXAMINATION: Temperature 97.8, pulse 72, respirations 16, blood pressure 95/56, pulse 95% on room air. GENERAL APPEARANCE: Sitting up on a chair, awake. EYES: Pupils equal. Conjunctivae normal. NECK: JVD not raised. Mass not palpable. Respiratory effort normal. LUNGS: Clear. CARDIOVASCULAR: 1st and 2nd sounds normal. No edema. ABDOMEN: Soft, nontender. Liver and spleen not palpable. PSYCHIATRY: Alert and oriented x3. Mood and affect normal. INVESTIGATIONS: White count 13.8, hemoglobin 9.3. ASSESSMENT: 1. Left femur intertrochanteric fracture secondary to fall, followed by intramedullary hip screw. 2. Essential hypertension. 3. Acute postoperative blood loss anemia expected from surgery. 4. Hypothyroidism. 5. Peripheral neuropathy. 6. Hyperlipidemia. 7. 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 8. Primary osteoarthritis. PLAN: Patient's blood pressure is running a bit on the lower side. The patient is getting IV fluids. For DVT prophylaxis, as requested by Orthopedics, we will add Lovenox 40 mg subcu daily. Will repeat a CBC in the morning. Care was discussed the patient and family at the bedside. Thank you, will follow. MMODL / IJN: [id number] /
[2018-08-03] MEDS ORDERED: ASPIRIN 81 MG PO STA (01:33)
[2018-08-03] MEDS ORDERED: HEPARIN SOD,PORK IN 0.45% NACL 25,000 UNIT in 0.45% NACL 1 250ML.BAG IV SCH (04:00)
[2018-08-03 05:09] LABS: Glucose,Whole Blood 146 mg/dL (75-99)
[2018-08-03] MEDS: HEPARIN SOD,PORK IN 0.45% NACL 25,000 UNIT in 0.45% NACL 1 250ML.BAG IV SCH (05:31)
[2018-08-03 05:42] LABS: Basophils % (A) 0 %; Eosinophils # (A) 0.1 k/uL (0-0.7); Eosinophils % (A) 1 %; HCT 20.1 % (34.0-46.0); Lymphocytes # (A) 1.2 k/uL (1.0-4.8); Lymphocytes % (A) 18 %; MCH 30.1 pg (25.0-35.0); MCHC 32.7 g/dL (31.0-37.0); Mean Platelet Volume 7.5; Monocytes # (A) 0.3 k/uL (0-1.0); Monocytes % (A) 4 %; Neutrophils # (A) 4.9 k/uL (1.3-7.7); Neutrophils % (A) 76 %; Platelet Count 150 k/uL (150-450); RBC 2.18 m/uL (3.80-5.40); RDW 13.4 % (11.5-15.5); WBC 6.5 k/uL (3.8-10.6)
[2018-08-03 05:52] LABS: Calcium 8.1 mg/dL (8.4-10.2); Potassium 4.6 mmol/L (3.5-5.1)
[2018-08-03 06:31] LABS: HGB 6.6 gm/dL (11.4-16.0)
[2018-08-03] MEDS: LEVOTHYROXINE 75 MCG TAB PO SCH (06:56)
[2018-08-03 09:22] LABS: Creatine Kinase MB 84.5 ng/mL (0.0-2.4)
[2018-08-03 09:26] LABS: Troponin I 10.5 ng/mL (0.000-0.034)
[2018-08-03] MEDS: ASPIRIN 81 MG PO SCH (09:48)
[2018-08-03] MEDS: METOPROLOL TARTRATE 12.5 MG TAB PO SCH ×2 (09:48→23:34)
[2018-08-03] MEDS: LIPASE 5,000/PROTEASE 17,000/AMYLASE 24,000 PO SCH (09:48)
[2018-08-03] MEDS: CALCIUM CARBONATE 500 MG CHEWABLE PO SCH ×3 (09:48→21:26)
[2018-08-03] MEDS: GABAPENTIN 100 MG CAP PO SCH ×2 (09:48→21:25)
--- NOTE | 2018-08-03 10:40 | ECHOF ---
Referral Reason:Elevated Troponin MEASUREMENTS -------- HEIGHT: 162.6 cm WEIGHT: 59.0 kg BP: IVSd: 1.0 cm (0.6 - 1.1) LVIDd: 3.6 cm (3.9 - 5.3) LVPWd: 1.2 cm (0.6 - 1.1) IVSs: 1.3 cm LVIDs: 2.2 cm LVPWs: 1.4 cm LAESV Index (A-L): 22.36 ml/m Ao Diam: 2.4 cm (2.0 - 3.7) AV Cusp: 0.8 cm (1.5 - 2.6) LA Diam: 2.7 cm (2.7 - 3.8) MV EXCURSION: 11.063 mm (> 18.000) MV EF SLOPE: 32 mm/s (70 - 150) EPSS: 0.4 cm MV E Jose: 1.46 m/s MV DecT: 103 ms MV A Jose: 1.20 m/s MV E/A Ratio: 1.22 AV maxP.84 mmHg AV meanP.53 mmHg AR PHT: 271 ms RAP: 5.00 mmHg RVSP: 44.10 mmHg FINDINGS -------- Sinus rhythm. This was a technically good study. The left ventricular size is normal. Left ventricular wall thickness is normal. Overall left vent ricular systolic function is mild-moderately impaired with, an EF between 40 - 45 %. Apical septum LV wall motion is hypokinetic. The right ventricle is normal in size and function. The left atrial size is normal. The right atrium is normal in size. Aortic valve is trileaflet and is severely thickened. There is mild aortic regurgitation. There i s severe aortic stenosis present. Peak/mean gradient across the Aortic Valve is 50.84mmHg / 31.53mm Hg. The mitral valve leaflets are mildly thickened. Mild mitral annular calcification present. Severe mitral regurgitation is present. Moderate to severe tricuspid regurgitation present. There is mild pulmonary hypertension. The rig ht ventricular systolic pressure, as measured by Doppler, is 44.10mmHg. Pulmonic valve appears structurally normal. The aortic root size is normal. Normal inferior vena cava with normal inspiratory collapse consistent with estimated right atrial pre ssure of 5 mmHg. The pericardium is normal. CONCLUSIONS -------- 1. Sinus rhythm. 2. This was a technically good study. 3. The left ventricular size is normal. 4. Left ventricular wall thickness is normal. 5. Apical septum LV wall motion is hypokinetic. 6. The right ventricle is normal in size and function. 7. The left atrial size is normal. 8. The right atrium is normal in size. 9. Aortic valve is trileaflet and is severely thickened. 10. There is mild aortic regurgitation. 11. There is severe aortic stenosis present. 12. Peak/mean gradient across the Aortic Valve is 50.84mmHg / 31.53mmHg. 13. The mitral valve leaflets are mildly thickened. 14. Mild mitral annular calcification present. 15. Severe mitral regurgitation is present. 16. Moderate to severe tricuspid regurgitation present. 17. There is mild pulmonary hypertension. 18. The right ventricular systolic pressure, as measured by Doppler, is 44.10mmHg. 19. Pulmonic valve appears structurally normal. 20. The aortic root size is normal. 21. Normal inferior vena cava with normal inspiratory collapse consistent with estimated right atrial pressure of 5 mmHg. 22. The pericardium is normal. SPOOL CLEANER: Moon Harman RDCS
[2018-08-03] MEDS: HYDROcodone/APAP 5-325MG 1 EACH TAB PO PRN (12:11)
[2018-08-03] MEDS: MULTIVITAMINS, THERA 1 EACH TAB PO SCH (12:11)
[2018-08-03] MEDS: CHOLECALCIFEROL 1,000 UNIT TAB PO SCH (12:12)
--- NOTE | 2018-08-03 12:18 | CONS ---
CONSULTATION CHIEF COMPLAINT: Chest pain. Shobha is an 87-year-old lady who is admitted to hospital with hip fracture and underwent surgery and while on the orthopedic floor, developed chest pain and ruled in for myocardial infarction. She has known severe aortic stenosis with a peak gradient of 50 mm and a mean gradient of 31 mm across the valve and opted not to have anything done about it. Recent echo on her shows moderate pulmonary hypertension with severe mitral regurgitation. Patient does not want to undergo invasive procedures including catheterization or angioplasty. EKG on this admission reveals sinus rhythm with nonspecific ST-T wave changes. The plan at this stage is to treat her with IV heparin, aspirin, beta blockers, blood pressure tolerating nitrates. As per her wishes, we are not going to do any invasive procedures. PAST MEDICAL HISTORY: Significant for aortic stenosis, hypertension, and dyslipidemia. MEDICATIONS: At home include Norvasc, Synthroid, Neurontin, Plavix, Zyrtec, aspirin and Lipitor. ALLERGIES: There are no known drug allergies. FAMILY HISTORY: Negative for premature coronary artery disease. SOCIAL HISTORY: Negative for current smoking, EtOH abuse, or drug abuse. REVIEW OF SYSTEMS: HEENT is unremarkable. CARDIAC: As described above. RESPIRATORY: As described above. GI: Negative. GENITOURINARY: Negative. ALLERGY/IMMUNOLOGY: Negative. MUSCULOSKELETAL: Significant for arthritis. PSYCHOSOCIAL: Negative. DERM: Negative. CONSTITUTIONAL: Negative. ONCOLOGICAL: Negative. The rest of the system review is not relevant. PHYSICAL EXAM: Patient is comfortable at rest. Vital signs are stable. There is no jugular venous distention. Carotid upstroke is normal. There is no bruit. Chest exam reveals good air entry. No crackles or rhonchi. Heart exam reveals first and second heart sounds. A 5 x 6 ejection systolic murmur in the aortic area and systolic murmur at the apex. Abdomen is soft. Exam of extremities did reveal trace edema. Peripheral pulses are palpable. LABS: Show a hemoglobin of 6.6. The troponin is 10, creatinine is 0.7. ASSESSMENT: 1. Acute non ST-segment elevation myocardial infarction. 2. Status post hip replacement. 3. Aortic stenosis. 4. Severe symptomatic anemia. PLAN: As per patient's wishes, we are going to treat her with optimal medical therapy. Please keep the hemoglobin above 8, preferably close to 10 and continue current medications. I reviewed echo results. I spoke to patient's son who was at bedside. JESE / SEBASTIAN: [id number] /
[2018-08-03 12:50] LABS: Basophils % (A) 0 %; Eosinophils # (A) 0.1 k/uL (0-0.7); Eosinophils % (A) 1 %; HCT 22.8 % (34.0-46.0); HGB 7.8 gm/dL (11.4-16.0); Lymphocytes # (A) 1.4 k/uL (1.0-4.8); Lymphocytes % (A) 25 %; MCH 31.8 pg (25.0-35.0); MCV 93.6 fL (80.0-100.0); Mean Platelet Volume 6.8; Monocytes # (A) 0.2 k/uL (0-1.0); Monocytes % (A) 4 %; Neutrophils % (A) 69 %; Platelet Count 143 k/uL (150-450); RBC 2.44 m/uL (3.80-5.40); RDW 13.6 % (11.5-15.5); WBC 5.8 k/uL (3.8-10.6)
[2018-08-03] MEDS ORDERED: NITROGLYCERIN SL TABS 0.4 MG TAB SUBLINGUAL PRN (13:12)
[2018-08-03] MEDS ORDERED: NITROGLYCERIN SL TABS 0.4 MG TAB SUBLINGUAL ONE (13:17)
[2018-08-03] MEDS ORDERED: HYDROmorphone 0.5 MG/0.5 ML SYRINGE IVP PRN (13:36)
--- NOTE | 2018-08-03 14:53 | P.PN ---
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 Patient states she was coming in the house after getting the mail and was trying to close a door with her cane when she lost her footing and fell. Patient states she landed on her left hip. She also fell onto her elbows. She denies hitting her head. She did not lose consciousness. She was not able to get up, she required help. She was unable to ambulate after the fall. Patient subsequently presented to the [facility] ED for evaluation, where she was found to have a left intertrochanteric hip fracture. Today is post-op day #2. Overnight, patient was tachycardic and complained of chest pain. Per nursing notes, ECG revealed sinus tachycardia. Patient was transferred from surgical floor to SICU around 0500 today, was placed on telemetry. Troponin level ordered, it resulted elevated at 6.480. PTT 27.6. CBC this morning revealed Hgb of 6.6. Echocardiogram has also been ordered, per medicine. Cardiology has been consulted. Per Dr. Skelton, 1 unit of packed RBCs ordered. On examination, patient states she feels weak, and extremely tired. She states her pain is very well-controlled at the moment. Per family, patient was combative towards family members and staff yesterday afternoon. Per daughter, patient tolerated breakfast. Patient is closing her eyes during my exam. She denies being dizzy, lightheaded. Patient is mildly tachycardic, mildly hypotensive currently. Objective - Vital Signs Vital signs: Vital Signs Temp 97.7 F 08/03/18 05:23 Pulse 109 H 08/03/18 05:23 Resp 15 08/03/18 05:23 BP 94/57 08/03/18 05:23 Pulse Ox 93 L 08/03/18 05:23 Intake & Output 08/02/18 08/03/18 08/03/18 18:59 06:59 18:59 Intake Total 525 500 Output Total 825 Balance 525 -325 Intake: IV 50 0.9 50 Intake, IV Titration 525 450 Amount Sodium Chloride 0.9% 1, 525 450 000 ml @ 50 mls/hr IV . Q20H [facility] Rx#:[id number] Output: Urine 825 Other: Voiding Method Indwelling Catheter Indwelling Catheter # Bowel Movements 0 - Exam On exam, the patient is sleeping in bed, lethargic. Patient is able to be fully awakened, patient is alert and oriented x3. On inspection of the left hip , there are two surgical dressings in place which are clean, dry, and intact. Dressings are taken down, and there are two surgical incisions which show no signs of infection; there is no erythema or drainage. No bleeding from either incisions. Calves are soft and nontender bilaterally. Patient has full range of motion of the ankles and toes bilaterally. Neurovascular is intact of the lower extremities bilaterally. Dorsalis pedis pulse and posterior tibial pulse + 2 bilaterally, brisk capillary refill of great toes bilaterally. - Labs CBC & Chem 7: 08/03/18 12:04 08/03/18 05:05 Labs: Abnormal Lab Results - Last 24 Hours (Table) 07/31/18 08/01/18 08/03/18 Range/Units 18:30 16:49 02:29 RBC (3.80-5.40) m/uL Hgb (11.4-16.0) gm/dL Hct (34.0-46.0) % Sodium (137-145) mmol/L Carbon Dioxide (22-30) mmol/L Glucose (74-99) mg/dL POC Glucose (mg/dL) (75-99) mg/dL Calcium (8.4-10.2) mg/dL Troponin I 6.480 H* (0.000-0.034) ng/mL Vitamin D 25-Hydroxy 26.2 L (30.0-100.0) ng/mL Crossmatch See Detail 08/03/18 08/03/18 08/03/18 Range/Units 05:02 05:05 05:07 RBC 2.18 L (3.80-5.40) m/uL Hgb 6.6 L* D (11.4-16.0) gm/dL Hct 20.1 L (34.0-46.0) % Sodium 131 L (137-145) mmol/L Carbon Dioxide 20 L (22-30) mmol/L Glucose 128 H (74-99) mg/dL POC Glucose (mg/dL) 146 H (75-99) mg/dL Calcium 8.1 L (8.4-10.2) mg/dL Troponin I (0.000-0.034) ng/mL Vitamin D 25-Hydroxy (30.0-100.0) ng/mL Crossmatch - Imaging and Cardiology 07/31/18 - Left hip/femur xray reveals intertrochanteric fracture of proximal femur. Assessment and Plan Assessment: - Left intertrochanteric hip fracture status-post short intramedullary hip screw - Post-operative anemia Plan: - 1 unit of packed RBCs ordered. Will defer giving additional units to medicine. - Cardiology has been consulted. Will appreciate medicine and cardiology recommendations. - Repeat CBC today, per medicine. - Anticoagulation per medicine, Lovenox 40mg qd has been D/C and heparin has been started. - Patient may weight-bear as tolerated on the left leg. Up with assistance, up with a walker. Recommended patient ice and elevate left hip to reduce pain. PT for gait and balance training. - Continue current pain regimen. - Vitamin D 25 hydroxy level low at 26.6, patient started on Vitamin D3 2,000U qd, along with calcium carbonate 500mg TID. - Patient discussed with Dr. Skelton
[2018-08-03] MEDS: CLOPIDOGREL 75 MG TAB PO SCH (15:28)
[2018-08-03] MEDS: NITROGLYCERIN OINT 1 INCH/GM PACKET TOPICAL SCH (15:28)
[2018-08-03] MEDS: MELATONIN 3 MG TABLET PO SCH (21:25)
[2018-08-03] MEDS: ATORVASTATIN 40 MG TAB PO SCH (21:25)
[2018-08-03] MEDS: SENNOSIDES-DOCUSATE SODIUM 1 EACH TAB PO SCH (21:26)
[2018-08-03] MEDS: PRIMIDONE 50 MG TAB PO SCH (21:26)
--- NOTE | 2018-08-03 23:12 | PN ---
PROGRESS NOTE DATE OF SERVICE: 08/03/2018. PRESENTING COMPLAINT: Chest pain. INTERVAL HISTORY: Patient is status post femur fracture repair. Early hours of the night and morning I got a call that the patient was having chest pain. I ordered EKG and troponin. The patient ruled in for an acute non-Q-wave OR. Cardiology was consulted. The patient started put on IV heparin and was moved to the ICU. Subsequently, hemoglobin came back to be 6.6. There was no evidence of bleeding. The patient was ordered 2 units of blood and subsequently second one. The patient has known aortic stenosis, has opted for no intervention. The patient also did not want any cardiac catheterization when discussed with Cardiology this morning. Having intermittent chest pains. The patient's family is at the bedside. REVIEW OF SYSTEMS: Done for constitutional, cardiovascular, GI, pulmonary, musculoskeletal; relevant findings as above. MEDICATIONS: Reviewed, that include IV heparin. PHYSICAL EXAMINATION: VITAL SIGNS: Temperature 97.9, pulse 92, respiratory rate 18, blood pressure 96/56, pulse ox 96% on 2 L. GENERAL APPEARANCE: Lying in bed, tired-appearing. EYES: Pupils equal. Conjunctivae normal. NECK: JVD not raised. Mass not palpable. Respiratory effort normal. LUNGS: Clear. CARDIOVASCULAR: 1st and 2nd heart sounds normal. No edema. Ejection systolic murmur. ABDOMEN: Soft, nontender. Liver and spleen not palpable. PSYCHIATRY: Alert and oriented x3. Mood and affect slightly low. INVESTIGATIONS: White count 6.5, hemoglobin 6.6, repeat 7.8 after transfusion. Potassium 3.6. BUN and creatinine normal. Troponin 6.4 and 10.5. The 2D echocardiogram shows severe aortic stenosis with a gradient of 50, severe mitral regurgitation, moderate to severe tricuspid regurgitation and EF of 40% to 45%. ASSESSMENT: 1. Acute postoperative [id number] myocardial infarction. 2. Severe mitral regurgitation and tricuspid regurgitation, nonrheumatic. 3. Ischemic cardiomyopathy, ejection fraction 40% to 45%. 4. Left femur intertrochanteric fracture secondary to fall, followed by intramedullary hip screw. 5. Essential hypertension, history of. 6. Acute postoperative blood loss anemia, expected from surgery, now symptomatic. 7. Hypothyroidism. 8. Peripheral neuropathy. 9. Hyperlipidemia. 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 11.Primary osteoarthritis. 12.Severe aortic stenosis with a gradient of 50. Patient has, in the past, opted for no intervention. PLAN: Patient is admitted to the ICU, not doing too well. The patient will be receiving 2 units of blood. Did get IV heparin. The patient has declined any surgery. I did speak at length to the patient and family at the bedside. Also will be getting a nitro paste once the blood pressure comes up. MMODL / IJN: [id number] /
[2018-08-04] MEDS: NITROGLYCERIN OINT 1 INCH/GM PACKET TOPICAL SCH ×3 (02:06→16:18)
[2018-08-04] MEDS: SODIUM CHLORIDE 0.9% 1,000 ML IV SCH (02:07)
[2018-08-04 05:40] LABS: Basophils % (A) 0 %; Eosinophils # (A) 0.1 k/uL (0-0.7); Eosinophils % (A) 1 %; HCT 27.1 % (34.0-46.0); HGB 8.8 gm/dL (11.4-16.0); Lymphocytes # (A) 1.6 k/uL (1.0-4.8); Lymphocytes % (A) 17 %; MCH 30.3 pg (25.0-35.0); MCHC 32.6 g/dL (31.0-37.0); Monocytes # (A) 0.7 k/uL (0-1.0); Monocytes % (A) 8 %; Neutrophils # (A) 7.1 k/uL (1.3-7.7); Neutrophils % (A) 73 %; Platelet Count 169 k/uL (150-450); RBC 2.91 m/uL (3.80-5.40); RDW 14.2 % (11.5-15.5); WBC 9.7 k/uL (3.8-10.6)
[2018-08-04 06:23] LABS: Albumin 2.5 g/dL (3.5-5.0); Calcium 7.9 mg/dL (8.4-10.2); Magnesium 1.8 mg/dL (1.6-2.3); Phosphorus 3.4 mg/dL (2.5-4.5); Total Bilirubin 0.8 mg/dL (0.2-1.3); Total Protein 4.9 g/dL (6.3-8.2)
[2018-08-04] MEDS: LEVOTHYROXINE 75 MCG TAB PO SCH (06:52)
[2018-08-04] MEDS: CALCIUM CARBONATE 500 MG CHEWABLE PO SCH ×3 (08:02→21:52)
[2018-08-04] MEDS: LIPASE 5,000/PROTEASE 17,000/AMYLASE 24,000 PO SCH (08:02)
[2018-08-04] MEDS: ASPIRIN 81 MG PO SCH (08:02)
[2018-08-04] MEDS: METOPROLOL TARTRATE 12.5 MG TAB PO SCH ×2 (08:02→21:52)
[2018-08-04] MEDS: CLOPIDOGREL 75 MG TAB PO SCH (08:03)
[2018-08-04] MEDS: GABAPENTIN 100 MG CAP PO SCH ×2 (08:03→21:52)
[2018-08-04] MEDS: MORPHINE SULFATE 4 MG/ML SYRINGE IV PRN ×3 (09:01→18:42)
[2018-08-04] MEDS: CHOLECALCIFEROL 1,000 UNIT TAB PO SCH (12:33)
[2018-08-04] MEDS: MULTIVITAMINS, THERA 1 EACH TAB PO SCH (12:34)
[2018-08-04] MEDS: HEPARIN SOD,PORK IN 0.45% NACL 25,000 UNIT in 0.45% NACL 1 250ML.BAG IV SCH (12:40)
--- NOTE | 2018-08-04 13:52 | PN ---
PROGRESS NOTE Shobha is an 87-year-old lady who was admitted to hospital with hip fracture, underwent surgery and then postoperatively developed myocardial infarction. This morning she is feeling better. Has not had further episodes of chest pain since yesterday. Peak troponin is 30. On exam, comfortable at rest. Afebrile. Vital signs are stable. Chest exam reveals good air entry bilaterally. Heart exam reveals first and second heart sounds. No gallop. Exam of extremities did not reveal any edema. Peripheral pulses are felt. ASSESSMENT: Acute non ST-segment elevation myocardial infarction. PLAN: Patient will be treated with optimal medical therapy as per her wishes. MMODL / IJN: [id number] /
--- NOTE | 2018-08-04 16:04 | P.PN ---
Subjective Progress Note Date: 08/04/18 The patient was seen today at the bedside in the ICU accompanied by her daughter , , and Dr. Mann. Overall she is doing better since being diagnosed with an acute coronary event and blood loss anemia. She was transfused yesterday. This afternoon she is sitting comfortably in her chair and is more alert. She has mild discomfort in the left leg. Objective - Vital Signs Vital signs: Vital Signs Temp 97.9 F 08/04/18 12:00 Pulse 75 08/04/18 12:00 Resp 24 08/04/18 12:00 BP 102/61 08/04/18 12:00 Pulse Ox 96 08/04/18 12:00 Intake & Output 08/03/18 08/04/18 08/04/18 18:59 06:59 18:59 Intake Total 1562.42 607.674 2584.15 Output Total 250 250 Balance 1562.42 524.511 879.15 Weight 69.6 kg Intake: IV 300 600 600 0.9 300 600 600 Intake, IV Titration 42.42 174.511 29.15 Amount Heparin Sod,Pork in 0.45% 42.42 174.511 29.15 NaCl 25,000 unit In 0.45 % NaCl 1 250ml.bag @ 12 UNITS/KG/HR 7.07 mls/hr IV .Q24H [facility] Rx#: [id number] Oral 500 500 Blood Product 620 Rc As-3 Unit 310 [id number] Rc Pheresis 2 As3 Unit 310 [id number] Other 100 Rc As-3 Unit 50 [id number] Rc Pheresis 2 As3 Unit 50 [id number] Output: Urine 250 250 Other: Voiding Method Indwelling Catheter Indwelling Catheter Indwelling Catheter # Bowel Movements 0 - Exam The patient is alert and sitting in a chair. A focused examination of the patient's left leg shows clean-appearing surgical dressings. Her thigh is soft. Distally the left leg is neurovascularly intact. - Labs CBC & Chem 7: 08/04/18 04:48 08/04/18 04:48 Labs: Abnormal Lab Results - Last 24 Hours (Table) 07/31/18 08/04/18 08/04/18 Range/Units 18:30 04:48 04:48 RBC (3.80-5.40) m/uL Hgb (11.4-16.0) gm/dL Hct (34.0-46.0) % APTT 98.5 H (22.0-30.0) sec Sodium (137-145) mmol/L Carbon Dioxide (22-30) mmol/L BUN (7-17) mg/dL Glucose (74-99) mg/dL Calcium (8.4-10.2) mg/dL AST (14-36) U/L ALT (9-52) U/L Troponin I 30.100 H* (0.000-0.034) ng/mL Total Protein (6.3-8.2) g/dL Albumin (3.5-5.0) g/dL Crossmatch See Detail 08/04/18 08/04/18 08/04/18 Range/Units 04:48 04:48 12:57 RBC 2.91 L (3.80-5.40) m/uL Hgb 8.8 L (11.4-16.0) gm/dL Hct 27.1 L (34.0-46.0) % APTT 62.9 H (22.0-30.0) sec Sodium 131 L (137-145) mmol/L Carbon Dioxide 21 L (22-30) mmol/L BUN 24 H (7-17) mg/dL Glucose 117 H (74-99) mg/dL Calcium 7.9 L (8.4-10.2) mg/dL AST 225 H (14-36) U/L ALT 60 H (9-52) U/L Troponin I (0.000-0.034) ng/mL Total Protein 4.9 L (6.3-8.2) g/dL Albumin 2.5 L (3.5-5.0) g/dL Crossmatch Assessment and Plan Assessment: The patient is an 87-year-old female who is postoperative day #3 status post operative fixation of left hip fracture with a short intramedullary hip screw whose postoperative course has been complicated by an acute coronary event and blood loss anemia requiring transfusion. 1. Continue weightbearing as tolerated and mobilization out of bed into a chair 2. Completed 2 doses of postoperative antibiotics 3. Appreciate internal medicine and cardiology's assistance with the patient's complicated perioperative medical issues
[2018-08-04] MEDS: PRIMIDONE 50 MG TAB PO SCH (21:51)
[2018-08-04] MEDS: MELATONIN 3 MG TABLET PO SCH (21:52)
[2018-08-04] MEDS: SENNOSIDES-DOCUSATE SODIUM 1 EACH TAB PO SCH (21:52)
[2018-08-04] MEDS: ATORVASTATIN 40 MG TAB PO SCH (21:52)
[2018-08-05] MEDS: NITROGLYCERIN OINT 1 INCH/GM PACKET TOPICAL SCH ×4 (00:31→23:47)
[2018-08-05] MEDS: MORPHINE SULFATE 4 MG/ML SYRINGE IV PRN ×4 (04:21→20:40)
[2018-08-05] MEDS: HEPARIN SOD,PORK IN 0.45% NACL 25,000 UNIT in 0.45% NACL 1 250ML.BAG IV SCH (04:22)
[2018-08-05 05:19] LABS: Basophils % (A) 0 %; Eosinophils # (A) 0.1 k/uL (0-0.7); Eosinophils % (A) 1 %; HCT 27.1 % (34.0-46.0); HGB 8.8 gm/dL (11.4-16.0); Lymphocytes # (A) 1.4 k/uL (1.0-4.8); Lymphocytes % (A) 13 %; MCH 30.4 pg (25.0-35.0); MCHC 32.3 g/dL (31.0-37.0); MCV 94.1 fL (80.0-100.0); Mean Platelet Volume 8.8; Monocytes # (A) 0.6 k/uL (0-1.0); Monocytes % (A) 6 %; Neutrophils # (A) 8.4 k/uL (1.3-7.7); Neutrophils % (A) 78 %; Platelet Count 183 k/uL (150-450); RBC 2.88 m/uL (3.80-5.40); RDW 14.3 % (11.5-15.5); WBC 10.7 k/uL (3.8-10.6)
[2018-08-05 05:30] LABS: Albumin 2.5 g/dL (3.5-5.0); Calcium 7.9 mg/dL (8.4-10.2); Magnesium 1.9 mg/dL (1.6-2.3); Phosphorus 2.9 mg/dL (2.5-4.5); Potassium 5.3 mmol/L (3.5-5.1); Total Bilirubin 0.7 mg/dL (0.2-1.3); Total Protein 4.9 g/dL (6.3-8.2)
--- NOTE | 2018-08-05 05:37 | PN ---
PROGRESS NOTE DATE OF SERVICE: 08/04/2018 PRESENTING COMPLAINT: Chest pain. INTERVAL HISTORY: This patient was seen by me yesterday afternoon in the ICU. Status post femur fracture repair. Then patient had an acute ND. The patient has known severe aortic stenosis. The patient did receive 2 units of blood. chest pain, just feels tired and run down. Patient did not want a cardiac cath. Family at the bedside including the and daughter. REVIEW OF SYSTEMS: Done for constitutional, cardiovascular, GI, pulmonary; relevant findings as above. CURRENT MEDICATIONS: Current medications are reviewed that include IV heparin, nitro paste. PHYSICAL EXAMINATION: On examination, temperature 97.7, pulse 77, respiration 18, blood pressure 115/66, pulse ox 97% on 2 L. GENERAL APPEARANCE: Sitting up in a chair, tired appearing. EYES: Pupil equal. Conjunctivae normal. NECK: JVD not raised. Mass not palpable. RESPIRATORY: Effort increased LUNGS: Decreased breath sounds. CARDIOVASCULAR: First and second sounds normal. No edema. Ejection systolic murmur. ABDOMEN: Soft, nontender. Liver and spleen not palpable. PSYCHIATRY: Alert and oriented x3. Mood and affect more perky today. INVESTIGATIONS: White count 9.7, hemoglobin 8.8, potassium 5, BUN 24, creatinine 1.02. Troponin 30. AST 225, ALT 60. ASSESSMENT: 1. Acute postoperative iug-CQ-[id number] myocardial infarction. At this point, patient does not want a cardiac cath. 2. Severe mitral regurgitation and tricuspid regurgitation, nonrheumatic. 3. Ischemic cardiomyopathy, ejection fraction 40% to 45%. 4. Left femur intertrochanteric fracture secondary to fall followed by intramedullary hip screw. 5. Essential hypertension, history of. 6. Acute postoperative blood loss anemia expected from surgery, now status post 2 units of blood. 7. Hypothyroidism. 8. Peripheral neuropathy. 9. Hyperlipidemia. 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 11.Primary osteoarthritis. 12.Severe aortic stenosis, nonrheumatic with a gradient of 50. The patient in the past past chosen for no intervention. 13.Acute hepatitis with LFTs going up to more than 5 times normal. At this point, will hold off the Lipitor temporarily. PLAN: I had a very lengthy talk with the patient, told her to consider cardiac catheterization balancing the pros and cons. She will think about this and will discuss with Dr. Patten if she feels so, also discussed with the daughter and the at the bedside. We will get a chest x-ray repeated in the morning. Total time spent today was about 40 minutes with over 25 minutes of discussion. JESE / DAVIDN: [id number] /
[2018-08-05] MEDS: LEVOTHYROXINE 75 MCG TAB PO SCH (06:13)
[2018-08-05] MEDS ORDERED: HEPARIN SODIUM,PORCINE 5,000 UNIT/ML 1 ML VIAL IV ONE (06:22)
--- NOTE | 2018-08-05 07:18 | XR ---
EXAMINATION TYPE: XR chest 1V portable DATE OF EXAM: 08/05/2018 COMPARISON: 07/31/2018 HISTORY: Congestive heart failure. Shortness of breath. TECHNIQUE: Single frontal view of the chest is obtained. FINDINGS: There are new trace pleural effusions blunting the costophrenic angles and obscuring the l eft hemidiaphragm. Are also new bibasilar opacities. Cardiomediastinal silhouette is upper limits of normal appearing relatively larger than on the prior given differences in technique. Pulmonary hyperi nflation also suggests the possibility of underlying COPD. Osseous structures display generalized dem ineralization. IMPRESSION: New bibasilar opacities that could represent atelectasis or pneumonia in the appropriate clinical setting with new trace pleural effusions, left greater than right.
[2018-08-05] MEDS: GABAPENTIN 100 MG CAP PO SCH ×2 (08:44→20:36)
[2018-08-05] MEDS: ASPIRIN 81 MG PO SCH (08:44)
[2018-08-05] MEDS: CLOPIDOGREL 75 MG TAB PO SCH (08:45)
[2018-08-05] MEDS: LIPASE 5,000/PROTEASE 17,000/AMYLASE 24,000 PO SCH (08:45)
[2018-08-05] MEDS: CALCIUM CARBONATE 500 MG CHEWABLE PO SCH ×3 (08:45→22:00)
[2018-08-05] MEDS: METOPROLOL TARTRATE 12.5 MG TAB PO SCH ×2 (08:45→20:36)
--- NOTE | 2018-08-05 09:20 | P.PN ---
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 Patient states she was coming in the house after getting the mail and was trying to close a door with her cane when she lost her footing and fell. Patient states she landed on her left hip. She also fell onto her elbows. She denies hitting her head. She did not lose consciousness. She was not able to get up, she required help. She was unable to ambulate after the fall. Patient subsequently presented to the [facility] ED for evaluation, where she was found to have a left intertrochanteric hip fracture. Today is post-op day #4. Patient is alert sitting up in bed, accompanied by her son. She has received two units of blood since 08/03/18. She states she is feeling fine this morning. She states her pain is currently well-controlled. Yesterday patient was able to ambulate to the chair with assistance and a walker. Per son, she will try to walk to the door with PT today. Per son, she tolerated her breakfast well. Mildly hypotensive, vital signs stable. Objective - Vital Signs Vital signs: Vital Signs Temp 98.1 F 08/05/18 08:00 Pulse 98 08/05/18 08:00 Resp 20 08/05/18 08:00 BP 99/55 08/05/18 08:00 Pulse Ox 97 08/05/18 08:00 Intake & Output 08/04/18 08/05/18 08/05/18 18:59 06:59 18:59 Intake Total 1129.15 1095.842 Output Total 250 380 Balance 879.15 715.842 Weight 69.5 kg Intake: IV 600 800 0.9 600 800 Intake, IV Titration 29.15 95.842 Amount Heparin Sod,Pork in 0.45% 29.15 95.842 NaCl 25,000 unit In 0.45 % NaCl 1 250ml.bag @ 12 UNITS/KG/HR 7.07 mls/hr IV .Q24H [facility] Rx#: [id number] Oral 500 200 Output: Urine 250 380 Other: Voiding Method Indwelling Catheter Indwelling Catheter # Bowel Movements 0 - Exam On exam, the patient is sitting up in bed, son at bedside. Patient is alert and oriented x3. On inspection of the left hip, there are two surgical dressings in place which are clean, dry, and intact. Dressings are taken down, and there are two surgical incisions which show no signs of infection; there is no erythema or drainage. Surgical dressings are changed. Ecchymosis of lateral left hip, no pain on palpation. Calves are soft and nontender bilaterally. Patient has full range of motion of the ankles and toes bilaterally. Neurovascular is intact of the lower extremities bilaterally. Dorsalis pedis pulse and posterior tibial pulse +2 bilaterally, brisk capillary refill of great toes bilaterally. - Labs CBC & Chem 7: 08/05/18 05:02 08/05/18 05:02 Labs: Abnormal Lab Results - Last 24 Hours (Table) 08/04/18 08/05/18 08/05/18 Range/Units 12:57 05:02 05:02 WBC 10.7 H (3.8-10.6) k/uL RBC 2.88 L (3.80-5.40) m/uL Hgb 8.8 L (11.4-16.0) gm/dL Hct 27.1 L (34.0-46.0) % Neutrophils # 8.4 H (1.3-7.7) k/uL APTT 62.9 H (22.0-30.0) sec Sodium (137-145) mmol/L Potassium (3.5-5.1) mmol/L Carbon Dioxide (22-30) mmol/L BUN (7-17) mg/dL Glucose (74-99) mg/dL Calcium (8.4-10.2) mg/dL AST (14-36) U/L ALT (9-52) U/L Troponin I 11.000 H* (0.000-0.034) ng/mL Total Protein (6.3-8.2) g/dL Albumin (3.5-5.0) g/dL 08/05/18 08/05/18 Range/Units 05:02 05:02 WBC (3.8-10.6) k/uL RBC (3.80-5.40) m/uL Hgb (11.4-16.0) gm/dL Hct (34.0-46.0) % Neutrophils # (1.3-7.7) k/uL APTT 42.8 H (22.0-30.0) sec Sodium 127 L (137-145) mmol/L Potassium 5.3 H (3.5-5.1) mmol/L Carbon Dioxide 20 L (22-30) mmol/L BUN 23 H (7-17) mg/dL Glucose 109 H (74-99) mg/dL Calcium 7.9 L (8.4-10.2) mg/dL AST 121 H (14-36) U/L ALT 57 H (9-52) U/L Troponin I (0.000-0.034) ng/mL Total Protein 4.9 L (6.3-8.2) g/dL Albumin 2.5 L (3.5-5.0) g/dL Assessment and Plan Assessment: - Left intertrochanteric hip fracture status-post short intramedullary hip screw - Post-operative anemia, status-post transfusion - Acute coronary event Plan: - Patient may weight bear as tolerated on left leg. Up with assistance, up with a walker. - Continue current pain control regimen. - 2 doses of post-operative antibiotics completed. - Anticoagulation per medicine and cardiology. - Appreciate medicine and cardiology consults. - Patient discussed with Dr. Skelton
[2018-08-05] MEDS: IPRATROPIUM-ALBUTEROL 3 ML NEB INHALATION SCH ×3 (10:25→20:51)
[2018-08-05] MEDS: LORATADINE 10 MG TAB PO SCH (10:40)
[2018-08-05] MEDS: CHOLECALCIFEROL 1,000 UNIT TAB PO SCH (13:10)
[2018-08-05] MEDS: MULTIVITAMINS, THERA 1 EACH TAB PO SCH (13:10)
--- NOTE | 2018-08-05 14:32 | PN ---
PROGRESS NOTE This is an 87-year-old lady who was admitted to ICU with non ST-segment elevation SC following hip surgery. She opted not to undergo invasive angiography or angioplasty. Cardiac-stovall, she is fairly stable. Denies any chest pain or difficulty in breathing. Denies any chest pain. Has had problems with consuming her diet. Patient is currently on aspirin, Plavix, IV heparin, which I am going to continue, Lopressor 12.5 b.i.d. and nitro paste. On exam, she is comfortable at rest. Afebrile. Heart rate is 76 with blood pressure 98/49, respiratory rate is 18. Chest exam mild atelectatic changes. Patient had an echocardiogram on this admission that revealed severe aortic stenosis with mild-to- moderate LV dysfunction with apical wall motion abnormality. On physical exam, she had an ejection systolic murmur in the aortic area. Labs show that potassium is 5.3, BUN is 23, creatinine is 0.8. Sodium is 127. ASSESSMENT: Non ST-segment elevation myocardial infarction, severe aortic stenosis, status post hip fracture and surgery. PLAN: Patient will continue with the current medications. I am going to start her on Lasix. If she becomes short of breath, at the moment, her lungs are clear and I spoke to patient's son who was saying that patient may rethink about undergoing cardiac catheterization and I told them that whenever she wishes to go through cardiac cath, we will consider doing angiography. JESE / SEBASTIAN: [id number] /
[2018-08-05] MEDS: PRIMIDONE 50 MG TAB PO SCH (20:36)
[2018-08-05] MEDS: SENNOSIDES-DOCUSATE SODIUM 1 EACH TAB PO SCH (20:36)
[2018-08-05] MEDS: MELATONIN 3 MG TABLET PO SCH (20:37)
[2018-08-05] MEDS: SODIUM CHLORIDE 0.9% 1,000 ML IV SCH ×2 (20:42)
--- NOTE | 2018-08-05 23:35 | PN ---
PROGRESS NOTE DATE OF SERVICE: 08/05/2018 PRESENTING COMPLAINT: Short of breath. INTERVAL HISTORY: This patient is status post femur fracture repair. Following that, had an acute PA. The patient has known severe aortic stenosis, status post 2 units of blood. Short of breath, did take a couple of steps, not much of an appetite. Does feel tired. REVIEW OF SYSTEMS: Done for constitutional, cardiovascular, GI, pulmonary; relevant findings as above. CURRENT MEDICATIONS: Reviewed that include nitro paste. PHYSICAL EXAMINATION: VITAL SIGNS: Temperature 98.1. Pulse 92, respiration 20, blood pressure 114/63, pulse ox 92 percent. GENERAL APPEARANCE: Lying in bed. Tired-appearing. EYES: Pupils equal. Conjunctivae pale. NECK: JVD possibly raised. Mass not palpable. RESPIRATORY: Effort increased. LUNGS: Some crackles. CARDIOVASCULAR: 1st and 2nd sounds normal. No edema. Ejection systolic murmur. ABDOMEN: Soft, nontender. Liver and spleen not palpable. PSYCHIATRY: Answering questions. INVESTIGATIONS: White count 10.7, hemoglobin 8.8. Sodium 127, potassium 5.3, BUN 23, creatinine 0.82. ProBNP 13,900. Chest x-ray film personally reviewed by me shows pulmonary edema. ASSESSMENT: 1. Acute postop non ST elevation myocardial infarction. The patient does not wish to have a cardiac cath. 2. Severe mitral and tricuspid regurgitation, nonrheumatic. 3. Acute congestive heart failure exacerbation from underlying coronary artery disease with ischemic cardiomyopathy, EF 40-45 percent with elevated BNP and a chest x-ray that looks wet. 4. Left femur IT fracture secondary to fall followed by IM hip screw. 5. Essential hypertension history. 6. Acute postoperative blood loss anemia expected from surgery, status post 2 units of blood. 7. Hypothyroidism. 8. Peripheral neuropathy. 9. Hyperlipidemia. 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 11.Primary osteoarthritis. 12.Severe aortic stenosis, nonrheumatic greater than 50. The patient has opted in the past no intervention. 13.Acute hepatitis could be element of ischemia from low ejection fraction and also patient was on Lipitor, now coming down. PLAN: We will give one dose of IV Lasix in the morning. I am hoping patient's Lipitor can be resumed. We will check the liver functions in the morning. Prognosis guarded. The patient remains selective overflow. MMODL / IJN: [id number] /
[2018-08-06] MEDS: IPRATROPIUM-ALBUTEROL 3 ML NEB INHALATION SCH ×7 (00:16→23:53)
[2018-08-06] MEDS: MORPHINE SULFATE 4 MG/ML SYRINGE IV PRN ×5 (03:56→20:59)
[2018-08-06 04:56] LABS: Basophils % (A) 0 %; Eosinophils # (A) 0.2 k/uL (0-0.7); Eosinophils % (A) 2 %; HCT 27.1 % (34.0-46.0); HGB 8.8 gm/dL (11.4-16.0); Lymphocytes # (A) 1.8 k/uL (1.0-4.8); Lymphocytes % (A) 22 %; MCH 30.3 pg (25.0-35.0); MCHC 32.3 g/dL (31.0-37.0); MCV 93.8 fL (80.0-100.0); Monocytes # (A) 0.5 k/uL (0-1.0); Monocytes % (A) 6 %; Neutrophils # (A) 5.7 k/uL (1.3-7.7); Neutrophils % (A) 68 %; Platelet Count 218 k/uL (150-450); RBC 2.89 m/uL (3.80-5.40); WBC 8.4 k/uL (3.8-10.6)
[2018-08-06 05:30] LABS: ALT 58 U/L (9-52); AST 84 U/L (14-36); Albumin 2.5 g/dL (3.5-5.0); Alkaline Phosphatase 109 U/L (38-126); Anion Gap 9 mmol/L; Blood Urea Nitrogen 19 mg/dL (7-17); Carbon Dioxide 19 mmol/L (22-30); Chloride 101 mmol/L (98-107); Glucose 120 mg/dL (74-99); Magnesium 1.9 mg/dL (1.6-2.3); Phosphorus 3.4 mg/dL (2.5-4.5); Potassium 4.4 mmol/L (3.5-5.1); Sodium 129 mmol/L (137-145); Total Bilirubin 0.7 mg/dL (0.2-1.3)
[2018-08-06] MEDS ORDERED: FUROSEMIDE 10 MG/ML 4 ML VIAL IV SCH (06:00)
[2018-08-06] MEDS ORDERED: HEPARIN SODIUM,PORCINE 5,000 UNIT/ML 1 ML VIAL IV ONE (06:22)
[2018-08-06] MEDS: LEVOTHYROXINE 75 MCG TAB PO SCH (06:44)
[2018-08-06] MEDS: CLOPIDOGREL 75 MG TAB PO SCH (08:33)
[2018-08-06] MEDS: GABAPENTIN 100 MG CAP PO SCH ×2 (08:33→20:04)
[2018-08-06] MEDS: CALCIUM CARBONATE 500 MG CHEWABLE PO SCH ×3 (08:33→20:05)
[2018-08-06] MEDS: ASPIRIN 81 MG PO SCH (08:33)
[2018-08-06] MEDS: LIPASE 5,000/PROTEASE 17,000/AMYLASE 24,000 PO SCH (08:33)
[2018-08-06] MEDS: LORATADINE 10 MG TAB PO SCH (08:34)
[2018-08-06] MEDS: METOPROLOL TARTRATE 12.5 MG TAB PO SCH ×2 (08:35→20:04)
[2018-08-06] MEDS: MAGNESIUM HYDROXIDE 2,400 MG/10 ML CUP PO PRN (08:37)
[2018-08-06] MEDS: NITROGLYCERIN OINT 1 INCH/GM PACKET TOPICAL SCH (08:37)
--- NOTE | 2018-08-06 10:53 | P.PN ---
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 Patient states she was coming in the house after getting the mail and was trying to close a door with her cane when she lost her footing and fell. Patient states she landed on her left hip. She also fell onto her elbows. She denies hitting her head. She did not lose consciousness. She was not able to get up, she required help. She was unable to ambulate after the fall. Patient subsequently presented to the [facility] ED for evaluation, where she was found to have a left intertrochanteric hip fracture. Today is post-op day #5. Patient is alert sitting up in bed, accompanied by her son and daughter. She has received two units of blood since 08/03/18. She states she is feeling fine this morning, but tired. Per son, patient was able to ambulate to the door with assistance and a walker yesterday. She notes she had pain in her hip while ambulating, although she states she is comfortable at the moment. Vital signs stable. Objective - Vital Signs Vital signs: Vital Signs Temp 98.5 F 08/06/18 08:00 Pulse 72 08/06/18 08:17 Resp 16 08/06/18 08:00 BP 106/51 08/06/18 08:00 Pulse Ox 96 08/06/18 08:00 Intake & Output 08/05/18 08/06/18 08/06/18 18:59 06:59 18:59 Intake Total 955.952 Output Total 823 217 9992 Balance -325 305.952 -1100 Weight 71.3 kg Intake: IV 600 0.9 600 Intake, IV Titration 155.952 Amount Heparin Sod,Pork in 0.45% 155.952 NaCl 25,000 unit In 0.45 % NaCl 1 250ml.bag @ 12 UNITS/KG/HR 7.07 mls/hr IV .Q24H GEOFF Rx#: [id number] Oral 200 Output: Urine 142 315 5126 Other: Voiding Method Indwelling Catheter Indwelling Catheter # Bowel Movements 0 - Exam On exam, the patient is sitting up in bed, son and daughter at bedside. Patient is alert and oriented x3. On inspection of the left hip, there are two surgical dressings in place which are clean, dry, and intact. Dressings are taken down, and there are two surgical incisions which show no signs of infection; there is no erythema or drainage. Ecchymosis of lateral left hip, no pain on palpation. Calves are soft and nontender bilaterally. She notes pain on palpation of the anterior lower left leg; there is no deformity, ecchymosis, erythema present. Patient has full range of motion of the ankles and toes bilaterally. Neurovascular is intact of the lower extremities bilaterally. Dorsalis pedis pulse and posterior tibial pulse +2 bilaterally, brisk capillary refill of great toes bilaterally. - Labs CBC & Chem 7: 08/06/18 04:42 08/06/18 04:42 Labs: Abnormal Lab Results - Last 24 Hours (Table) 08/05/18 08/06/18 08/06/18 Range/Units 13:44 04:42 04:42 RBC 2.89 L (3.80-5.40) m/uL Hgb 8.8 L (11.4-16.0) gm/dL Hct 27.1 L (34.0-46.0) % APTT 52.1 H (22.0-30.0) sec Sodium 129 L (137-145) mmol/L Carbon Dioxide 19 L (22-30) mmol/L BUN 19 H (7-17) mg/dL Glucose 120 H (74-99) mg/dL Calcium 8.0 L (8.4-10.2) mg/dL AST 84 H (14-36) U/L ALT 58 H (9-52) U/L Total Protein 5.0 L (6.3-8.2) g/dL Albumin 2.5 L (3.5-5.0) g/dL 08/06/18 Range/Units 04:42 RBC (3.80-5.40) m/uL Hgb (11.4-16.0) gm/dL Hct (34.0-46.0) % APTT 38.9 H (22.0-30.0) sec Sodium (137-145) mmol/L Carbon Dioxide (22-30) mmol/L BUN (7-17) mg/dL Glucose (74-99) mg/dL Calcium (8.4-10.2) mg/dL AST (14-36) U/L ALT (9-52) U/L Total Protein (6.3-8.2) g/dL Albumin (3.5-5.0) g/dL Assessment and Plan Assessment: - Left intertrochanteric hip fracture status-post short intramedullary hip screw - Post-operative anemia, status-post transfusion - Acute coronary event Plan: - Patient may weight bear as tolerated on left leg. Up with assistance, up with a walker. - Patient does not want to pursue any imaging to the lower left leg, therefore we will continue to monitor. Patient's son is bedside and he agrees with this plan. She notes no injury or event to cause pain in this area. - Continue current pain control regimen. - 2 doses of post-operative antibiotics completed. - Anticoagulation per medicine and cardiology. - Appreciate medicine and cardiology consults. - Patient discussed with Dr. Skelton
[2018-08-06] MEDS: CHOLECALCIFEROL 1,000 UNIT TAB PO SCH (12:03)
[2018-08-06] MEDS: MULTIVITAMINS, THERA 1 EACH TAB PO SCH (12:03)
--- NOTE | 2018-08-06 12:24 | CDI ---
Documentation Clarification Form Date: 08/06/2017 CDS: Rhona Ruff, CCS, CCDS Admit Date: 07/31/2017 Patient Name: Shobha Coronado ATTENTION: The Clinical Documentation Specialists (CDI) and [facility] Coding Staff appreciate your assistance in clarifying documentation. Please respond to the clarification below the line at the bottom and electronically sign. The CDI & [facility] Coding staff will review the response and follow-up if needed. Please note: Queries are made part of the Legal Health Record. If you have any questions, please contact the author of this message via ITS. Dr. Maikol Mann: CHF is documented in the 08/05 medical management progress note as "Acute congestive heart failure exacerbation from underlying coronary artery disease with ischemic cardiomyopathy, EF 40-45 percent with elevated BNP and a chest x- ray that looks wet." History/Risk Factors: CAD, hypertension, hypothyroidism, peripheral neuropathy, hyperlipidemia, osteoarthritis. Clinical Indicators: Patient presented with a left femur IT fracture secondary to a fall followed by IM hip screw. 07/31 VS: T 96.8*, BP 172/81^; 08/05 VS stable BNP 08/05 13,900 Echocardiogram Results 08/03: Mild aortic regurgitation, severe aortic stenosis, Severe MR, Mod-severe TR, mild pulmonary hypertension. 07/31 CXR: negative. 08/05 CXR: New bibasilar opacities that could represent atelectasis or pneumonia with new trace pleural effusions, left > right. Treatment: Patient suffered a NSTEMI postoperatively & is in ICU on IV Heparin, Albuterol INH, IV Lasix. In your professional opinion, can you please clarify the acuity and type of CHF if known? Systolic Heart Failure: o Acute o Chronic o Acute on Chronic Unable to Determine Other, please specify Present on admission: Yes or No (Last Revision: October 2017) already documented-see progess notes MTDD
[2018-08-06] MEDS: ISOSORBIDE MONONITRATE ER 30 MG TAB.ER.24H PO SCH (12:48)
[2018-08-06] MEDS ORDERED: FUROSEMIDE 10 MG/ML 4 ML VIAL IV STA (16:01)
[2018-08-06] MEDS: HEPARIN SODIUM,PORCINE 5,000 UNIT/ML 1 ML VIAL SQ SCH ×2 (16:16→22:55)
[2018-08-06] MEDS: SENNOSIDES-DOCUSATE SODIUM 1 EACH TAB PO SCH (20:04)
[2018-08-06] MEDS: PRIMIDONE 50 MG TAB PO SCH (20:04)
[2018-08-06] MEDS: MELATONIN 3 MG TABLET PO SCH (20:04)
[2018-08-06] MEDS: FUROSEMIDE 10 MG/ML 4 ML VIAL IV SCH (22:55)
--- NOTE | 2018-08-06 22:56 | PN ---
PROGRESS NOTE DATE OF SERVICE: 08/06/2018 PRESENTING COMPLAINT: Short of breath. INTERVAL HISTORY: Patient is status post femur fracture repair. Postoperatively she had an acute OR, has known underlying severe aortic stenosis, status post 2 units of blood. Today when I saw the patient quite a bit short of breath at rest, had significant amount of edema. Did tolerate some diet. The patient's sister is visiting. Sitting up in a chair. REVIEW OF SYSTEMS: Done for constitutional, cardiovascular, GI, pulmonary; relevant findings as above. CURRENT MEDICATIONS: Reviewed. They include: 1. Aspirin. 2. Plavix. 3. Neurontin. 4. Imdur. 5. Synthroid. 6. Claritin. 7. Lopressor. PHYSICAL EXAMINATION: Temperature 98.4, pulse 102, respiration 21, blood pressure 119/60, pulse ox 96% on room air. GENERAL APPEARANCE: Sitting up, short of breath. EYES: Pupils equal. Conjunctivae pale. NECK: JVD raised. Mass not palpable. RESPIRATORY: Effort increased. Expiratory wheezing, bilateral crackles. CARDIOVASCULAR: First and second sounds normal. Gross edema. Ejection systolic murmur. ABDOMEN: Soft, nontender. Liver and spleen not palpable. PSYCHIATRY: Alert, oriented x3. Mood and affect anxious-appearing. INVESTIGATIONS: White count 8.4, hemoglobin 8.8, potassium 4.4, BUN 19, creatinine 0.67, albumin 2.5. ASSESSMENT: 1. Acute postoperative [id number] myocardial infarction. Patient declined cardiac cath. 2. Severe mitral and tricuspid regurgitation, non-rheumatic. 3. Acute congestive heart failure exacerbation from underlying coronary artery disease, ejection fraction 40% to 45%, clinically decompensated. 4. Left femur right knee fracture secondary to fall followed by IM hip screw. 5. Essential hypertension, history of. 6. Acute postoperative blood loss anemia, expected from surgery, status post 2 units of blood. 7. Hypothyroidism. 8. Peripheral neuropathy. 9. Hyperlipidemia. 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 11.Primary osteoarthritis. 12.Severe aortic stenosis, non-rheumatic, greater than 50%. Patient has declined surgical intervention in the past. 13.Acute hepatitis, likely ischemic. PLAN: Will start the patient on IV Lasix 40 q.12. Blood pressure is running on the low side but clinically is rather at this point. Prognosis remains guarded. Care was discussed with the patient and sister at the bedside. Will follow. MMODL / IJN: [id number] /
[2018-08-07] MEDS: HYDROcodone/APAP 5-325MG 1 EACH TAB PO PRN ×4 (02:02→23:30)
[2018-08-07] MEDS: IPRATROPIUM-ALBUTEROL 3 ML NEB INHALATION SCH ×6 (04:24→23:43)
[2018-08-07 05:24] LABS: Basophils % (A) 0 %; Eosinophils # (A) 0.2 k/uL (0-0.7); Eosinophils % (A) 3 %; HCT 24.3 % (34.0-46.0); HGB 8.2 gm/dL (11.4-16.0); Lymphocytes # (A) 1.1 k/uL (1.0-4.8); Lymphocytes % (A) 15 %; MCH 31.4 pg (25.0-35.0); MCHC 33.9 g/dL (31.0-37.0); MCV 92.8 fL (80.0-100.0); Mean Platelet Volume 6.4; Monocytes # (A) 0.6 k/uL (0-1.0); Monocytes % (A) 8 %; Neutrophils # (A) 5.6 k/uL (1.3-7.7); Neutrophils % (A) 74 %; Platelet Count 229 k/uL (150-450); RBC 2.61 m/uL (3.80-5.40); WBC 7.6 k/uL (3.8-10.6)
[2018-08-07 05:39] LABS: Calcium 7.7 mg/dL (8.4-10.2); Magnesium 1.5 mg/dL (1.6-2.3); Potassium 4.1 mmol/L (3.5-5.1)
[2018-08-07] MEDS ORDERED: Magnesium Replacement Protocol 1 EACH MISC MISCELLANE PRN (06:18)
[2018-08-07] MEDS: LEVOTHYROXINE 75 MCG TAB PO SCH (06:28)
[2018-08-07] MEDS: MAGNESIUM SULFATE-D5W PMX 1 GM in DEXTROSE/WATER 1 100ML.BAG IVPB SCH ×2 (06:28→08:50)
[2018-08-07] MEDS: METOPROLOL TARTRATE 12.5 MG TAB PO SCH ×2 (08:52→20:32)
[2018-08-07] MEDS: HEPARIN SODIUM,PORCINE 5,000 UNIT/ML 1 ML VIAL SQ SCH ×3 (08:52→23:10)
[2018-08-07] MEDS: ISOSORBIDE MONONITRATE ER 30 MG TAB.ER.24H PO SCH (08:52)
[2018-08-07] MEDS: ASPIRIN 81 MG PO SCH (08:52)
[2018-08-07] MEDS: CLOPIDOGREL 75 MG TAB PO SCH (08:53)
[2018-08-07] MEDS: GABAPENTIN 100 MG CAP PO SCH ×2 (08:53→20:32)
[2018-08-07] MEDS: FUROSEMIDE 10 MG/ML 4 ML VIAL IV SCH (08:53)
--- NOTE | 2018-08-07 09:22 | P.PN ---
Subjective Progress Note Date: 08/07/18 Principal diagnosis: Acute non-STEMI This is a pleasant 87-year-old female patient who underwent hip surgery complicated by acute non-ST elevation myocardial infarction. The acute coronary syndrome was treated medically by patient wishes. She underwent an echocardiogram which revealed mildly impaired LV function was EF between 40-45% with evidence of moderate aortic stenosis and severe mitral regurgitation. On follow-up with the patient today, she denies having any chest pain or discomfort. Hemodynamically, she is slightly tachycardic with a resting heart rate in the 90s and marginally low blood pressure as well. Yesterday she was started on Lasix IV. Objective - Vital Signs Vital signs: Vital Signs Temp 98.4 F 08/07/18 04:00 Pulse 84 08/07/18 04:00 Resp 12 08/07/18 04:00 BP 110/58 08/07/18 04:00 Pulse Ox 93 L 08/07/18 04:00 Intake & Output 08/06/18 08/07/18 08/07/18 18:59 06:59 18:59 Intake Total 500 Output Total 2600 1800 Balance -2600 -1300 Weight 71.3 kg 73.2 kg Intake: Oral 500 Output: Urine 2600 1800 Other: Voiding Method Indwelling Catheter Indwelling Catheter # Bowel Movements 0 - Constitutional General appearance: Present: no acute distress - Respiratory Respiratory: bilateral: diminished - Cardiovascular Rhythm: regular Heart sounds: normal: S1, S2 Abnormal Heart Sounds: Present: systolic murmur - Labs CBC & Chem 7: 08/07/18 05:02 08/07/18 05:02 Labs: Abnormal Lab Results - Last 24 Hours (Table) 08/07/18 08/07/18 Range/Units 05:02 05:02 RBC 2.61 L (3.80-5.40) m/uL Hgb 8.2 L (11.4-16.0) gm/dL Hct 24.3 L (34.0-46.0) % Sodium 129 L (137-145) mmol/L Glucose 110 H (74-99) mg/dL Calcium 7.7 L (8.4-10.2) mg/dL Magnesium 1.5 L (1.6-2.3) mg/dL Assessment and Plan Assessment: Assessment #1 acute non-ST patient myocardial infarction #2 moderate aortic stenosis #3 severe mitral regurgitation #4 status post hip surgery Plan #1 continue the current medical regimen. Continue dual antiplatelet therapy #2 decrease the dose of Lasix in view of the margin a low blood pressure #3 continue the current dose of metoprolol #4 follow-up with the patient.
[2018-08-07] MEDS: LIPASE 5,000/PROTEASE 17,000/AMYLASE 24,000 PO SCH (10:19)
[2018-08-07] MEDS: MULTIVITAMINS, THERA 1 EACH TAB PO SCH (11:11)
[2018-08-07] MEDS: CHOLECALCIFEROL 1,000 UNIT TAB PO SCH (11:11)
--- NOTE | 2018-08-07 11:34 | P.PN ---
Subjective Progress Note Date: 08/07/18 Principal diagnosis: Status post left hip fracture. Status post intertrochanteric nail insertion left hip. Status post myocardial infarction. The patient is an 87-year-old female who is postoperative day #4 status post operative fixation of left hip fracture with a short intramedullary hip screw whose postoperative course has been complicated by an acute coronary event and blood loss anemia requiring transfusion. She remains in the intensive care unit but is stable at this time. She has no new orthopedic complaints or concerns today. Objective - Vital Signs Vital signs: Vital Signs Temp 98.4 F 08/07/18 04:00 Pulse 84 08/07/18 04:00 Resp 12 08/07/18 04:00 BP 110/58 08/07/18 04:00 Pulse Ox 93 L 08/07/18 04:00 Intake & Output 08/06/18 08/07/18 08/07/18 18:59 06:59 18:59 Intake Total 500 Output Total 2600 1800 Balance -2600 -1300 Weight 71.3 kg 73.2 kg Intake: Oral 500 Output: Urine 2600 1800 Other: Voiding Method Indwelling Catheter Indwelling Catheter # Bowel Movements 0 - Exam This is a pleasant 87-year-old female in no acute distress. She is alert and oriented 3. Exam of left hip reveals that her dressing is clean, dry and intact. She has full foot and ankle motion without difficulty or pain. Neurovascular status of lower extremity is intact. - Labs CBC & Chem 7: 08/07/18 05:02 08/07/18 05:02 Labs: Abnormal Lab Results - Last 24 Hours (Table) 08/07/18 08/07/18 Range/Units 05:02 05:02 RBC 2.61 L (3.80-5.40) m/uL Hgb 8.2 L (11.4-16.0) gm/dL Hct 24.3 L (34.0-46.0) % Sodium 129 L (137-145) mmol/L Glucose 110 H (74-99) mg/dL Calcium 7.7 L (8.4-10.2) mg/dL Magnesium 1.5 L (1.6-2.3) mg/dL Assessment and Plan (1) Intertrochanteric fracture of left hip Current Visit: Yes Status: Acute Code(s): S72.142A - DISPLACED INTERTROCHANTERIC FRACTURE OF LEFT FEMUR, INIT SNOMED Code(s): 116151131 (2) Non-STEMI (non-ST elevated myocardial infarction) Current Visit: Yes Status: Acute Code(s): I21.4 - NON-ST ELEVATION (NSTEMI) MYOCARDIAL INFARCTION SNOMED Code(s): 64674610 (3) Postoperative anemia Current Visit: Yes Status: Acute Code(s): D64.9 - ANEMIA, UNSPECIFIED SNOMED Code(s): 792117497 Plan: The clinical findings are discussed the patient. Continue current orthopedic care. She is weightbearing as tolerated with walker. We will continue to follow orthopedically.
[2018-08-07] MEDS: MAGNESIUM HYDROXIDE 2,400 MG/10 ML CUP PO PRN (18:27)
[2018-08-07] MEDS: MELATONIN 3 MG TABLET PO SCH (20:32)
[2018-08-07] MEDS: FUROSEMIDE 10 MG/ML 2 ML VIAL IV SCH (20:32)
[2018-08-07] MEDS: PRIMIDONE 50 MG TAB PO SCH (20:34)
[2018-08-07] MEDS: SENNOSIDES-DOCUSATE SODIUM 1 EACH TAB PO SCH (20:34)
[2018-08-08] MEDS: IPRATROPIUM-ALBUTEROL 3 ML NEB INHALATION SCH ×5 (04:22→19:23)
[2018-08-08 05:53] LABS: HCT 24.8 % (34.0-46.0); HGB 8.3 gm/dL (11.4-16.0); MCHC 33.3 g/dL (31.0-37.0); MCV 93.1 fL (80.0-100.0); Mean Platelet Volume 6.5; Platelet Count 252 k/uL (150-450); Poikilocytosis Slight; RBC 2.67 m/uL (3.80-5.40); WBC 7.9 k/uL (3.8-10.6)
[2018-08-08 06:03] LABS: Anion Gap 6 mmol/L; Blood Urea Nitrogen 17 mg/dL (7-17); Calcium 7.8 mg/dL (8.4-10.2); Carbon Dioxide 26 mmol/L (22-30); Chloride 99 mmol/L (98-107); Glucose 103 mg/dL (74-99); Potassium 3.9 mmol/L (3.5-5.1); Sodium 131 mmol/L (137-145)
[2018-08-08] MEDS ORDERED: Potassium Replacement Protocol 1 EACH MISC MISCELLANE PRN (06:21)
[2018-08-08] MEDS: LEVOTHYROXINE 75 MCG TAB PO SCH (06:40)
[2018-08-08] MEDS: PANTOPRAZOLE 40 MG TABLET PO SCH (06:41)
[2018-08-08] MEDS ORDERED: POTASSIUM CHLORIDE ER 20 MEQ TAB.ER PO SCH (07:00)
--- NOTE | 2018-08-08 07:55 | PN ---
PROGRESS NOTE DATE OF SERVICE: 08/07/2018 PRESENTING COMPLAINT: Short of breath. INTERVAL HISTORY: This patient admitted with femur fracture followed by repair. Subsequently had an acute ID. The patient has underlying severe aortic stenosis. Status post 2 units of blood yesterday. Started on IV Lasix, has diuresed well. Breathing is getting better. Edema started to come down. Did tolerate some diet. Was briefly out of the bed. REVIEW OF SYSTEMS: Done for constitutional, cardiovascular, GI, pulmonary; relevant findings as above. CURRENT MEDICATIONS: Reviewed that include IV Lasix 20 mg q.12, Lopressor. PHYSICAL EXAMINATION: Temperature 97.6, pulse 91, respiration 16, blood pressure 101/55, pulse ox 100 percent on room air. GENERAL APPEARANCE: Sitting up, propped up. Less short of breath. EYES: Pupil equal. Conjunctivae pale. NECK: JVD not raised. Mass not palpable. Respiratory effort increased. LUNGS: Greatly improved air entry, minimal crackles CARDIOVASCULAR: 1st and 2nd sounds normal. Decreased edema. Ejection systolic murmur. ABDOMEN: Soft, nontender. Liver and spleen not palpable. PSYCHIATRY: Alert and oriented x3. Less anxious-appearing. INVESTIGATIONS: White count 7.6, hemoglobin 8.2, potassium 4.1. ASSESSMENT: 1. Acute postop non ST elevation myocardial infarction. The patient declined cardiac cath. 2. Severe mitral and tricuspid regurgitation, nonrheumatic. 3. Acute congestive heart failure exacerbation from underlying coronary artery disease, EF 40-45 percent. Clinically some improvement. 4. Left femur intertrochanteric fracture secondary to fall followed by IM hip screw. 5. Acute postoperative blood-loss anemia, expected from surgery, status post 2 units of blood. 6. Hypothyroidism. 7. Peripheral neuropathy. 8. Hyperlipidemia. 9. 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 10.Primary osteoarthritis. 11.Severe aortic stenosis, nonrheumatic. The patient has declined surgical intervention in the past. 12.Acute hepatitis, likely ischemic. PLAN: Continue current medication and treatment plan. Care was discussed with the patient. Hopefully will go to the F on Thursday. Follow electrolytes closely. MMODL / IJN: [id number] /
[2018-08-08] MEDS: HYDROcodone/APAP 5-325MG 1 EACH TAB PO PRN ×3 (09:36→20:17)
[2018-08-08] MEDS: ASPIRIN 81 MG PO SCH (09:38)
[2018-08-08] MEDS: METOPROLOL TARTRATE 12.5 MG TAB PO SCH ×2 (09:38→20:14)
[2018-08-08] MEDS: GABAPENTIN 100 MG CAP PO SCH ×2 (09:38→20:13)
[2018-08-08] MEDS: CLOPIDOGREL 75 MG TAB PO SCH (09:38)
[2018-08-08] MEDS: FUROSEMIDE 10 MG/ML 2 ML VIAL IV SCH ×2 (09:39→20:13)
[2018-08-08] MEDS: LIPASE 5,000/PROTEASE 17,000/AMYLASE 24,000 PO SCH (09:46)
[2018-08-08] MEDS: HEPARIN SODIUM,PORCINE 5,000 UNIT/ML 1 ML VIAL SQ SCH ×3 (09:46→23:29)
--- NOTE | 2018-08-08 11:32 | P.PN ---
Subjective Progress Note Date: 08/08/18 Principal diagnosis: Status post left hip fracture. Status post intertrochanteric nail insertion left hip. Status post myocardial infarction. The patient is an 87-year-old female who is postoperative day #5 status post operative fixation of left hip fracture with a short intramedullary hip screw whose postoperative course has been complicated by an acute coronary event and blood loss anemia requiring transfusion. She remains in the intensive care unit but is stable at this time. She has no new orthopedic complaints or concerns today. Her son is present at bedside. Objective - Vital Signs Vital signs: Vital Signs Temp 97.4 F L 08/08/18 08:00 Pulse 98 08/08/18 08:00 Resp 27 H 08/08/18 08:00 BP 106/69 08/08/18 08:00 Pulse Ox 94 L 08/08/18 08:00 Intake & Output 08/07/18 08/08/18 08/08/18 18:59 06:59 18:59 Intake Total 800 Output Total 2300 1250 200 Balance -1500 -1250 -200 Weight 73.2 kg 69.9 kg Intake: Oral 800 Output: Urine 2300 1250 200 Other: Voiding Method Indwelling Catheter Indwelling Catheter # Bowel Movements 0 0 - Exam This is a pleasant 87-year-old female in no acute distress. She is alert and oriented 3. Exam of left hip reveals that her dressing is clean, dry and intact. She has full foot and ankle motion without difficulty or pain. Neurovascular status of lower extremity is intact. Dai catheter is still in place. - Labs CBC & Chem 7: 08/08/18 05:16 08/08/18 05:16 Labs: Abnormal Lab Results - Last 24 Hours (Table) 08/08/18 08/08/18 Range/Units 05:16 05:16 RBC 2.67 L (3.80-5.40) m/uL Hgb 8.3 L (11.4-16.0) gm/dL Hct 24.8 L (34.0-46.0) % Sodium 131 L (137-145) mmol/L Glucose 103 H (74-99) mg/dL Calcium 7.8 L (8.4-10.2) mg/dL Assessment and Plan (1) Intertrochanteric fracture of left hip Current Visit: Yes Status: Acute Code(s): S72.142A - DISPLACED INTERTROCHANTERIC FRACTURE OF LEFT FEMUR, INIT SNOMED Code(s): 491579975 (2) Non-STEMI (non-ST elevated myocardial infarction) Current Visit: Yes Status: Acute Code(s): I21.4 - NON-ST ELEVATION (NSTEMI) MYOCARDIAL INFARCTION SNOMED Code(s): 78331441 (3) Postoperative anemia Current Visit: Yes Status: Acute Code(s): D64.9 - ANEMIA, UNSPECIFIED SNOMED Code(s): 508988969 Plan: The clinical findings are discussed the patient. Continue current orthopedic care. She is weightbearing as tolerated with walker. Discontinue Dai catheter today for acute medicine. Plan discharged to inpatient rehab when cleared medically.
[2018-08-08] MEDS: MULTIVITAMINS, THERA 1 EACH TAB PO SCH (13:00)
[2018-08-08] MEDS: ISOSORBIDE MONONITRATE ER 30 MG TAB.ER.24H PO SCH (13:00)
[2018-08-08] MEDS: CHOLECALCIFEROL 1,000 UNIT TAB PO SCH (13:00)
--- NOTE | 2018-08-08 16:18 | P.PN ---
Subjective Progress Note Date: 08/08/18 Principal diagnosis: Acute non-STEMI This is a pleasant 87-year-old female patient who underwent hip surgery complicated by acute non-ST elevation myocardial infarction. The acute coronary syndrome was treated medically by patient wishes. She underwent an echocardiogram which revealed mildly impaired LV function was EF between 40-45% with evidence of moderate aortic stenosis and severe mitral regurgitation. On follow-up with the patient today, August 082018, she denies having any chest pain or discomfort. Hemodynamically, she is slightly tachycardic with a resting heart rate in the 90s and marginally low blood pressure as well. The plan is for the patient to be discharged to extended care facility. Objective - Vital Signs Vital signs: Vital Signs Temp 97.9 F 08/08/18 16:00 Pulse 89 08/08/18 16:00 Resp 19 08/08/18 16:00 BP 86/51 08/08/18 16:00 Pulse Ox 94 L 08/08/18 16:00 Intake & Output 08/07/18 08/08/18 08/08/18 18:59 06:59 18:59 Intake Total 800 Output Total 2300 1250 1400 Balance -1500 -1250 -1400 Weight 73.2 kg 69.9 kg Intake: Oral 800 Output: Urine 2300 1250 1400 Other: Voiding Method Indwelling Catheter Indwelling Catheter Bedside Commode # Bowel Movements 0 0 - Constitutional General appearance: Present: no acute distress - Respiratory Respiratory: bilateral: CTA - Cardiovascular Heart sounds: normal: S1, S2 Abnormal Heart Sounds: Present: systolic murmur - Labs CBC & Chem 7: 08/08/18 05:16 08/08/18 05:16 Labs: Abnormal Lab Results - Last 24 Hours (Table) 08/08/18 08/08/18 Range/Units 05:16 05:16 RBC 2.67 L (3.80-5.40) m/uL Hgb 8.3 L (11.4-16.0) gm/dL Hct 24.8 L (34.0-46.0) % Sodium 131 L (137-145) mmol/L Glucose 103 H (74-99) mg/dL Calcium 7.8 L (8.4-10.2) mg/dL Assessment and Plan Assessment: Assessment #1 acute non-ST patient myocardial infarction #2 moderate aortic stenosis #3 severe mitral regurgitation #4 status post hip surgery Plan #1 continue the current medical regimen. Continue dual antiplatelet therapy #2 possible discharge in the next 24 hours.
[2018-08-08] MEDS: MAGNESIUM HYDROXIDE 2,400 MG/10 ML CUP PO PRN (16:58)
[2018-08-08] MEDS ORDERED: BISACODYL 10 MG SUPP RECTAL STA (19:57)
[2018-08-08] MEDS: SENNOSIDES-DOCUSATE SODIUM 1 EACH TAB PO SCH (20:14)
[2018-08-08] MEDS: MELATONIN 3 MG TABLET PO SCH (20:14)
[2018-08-08] MEDS: PRIMIDONE 50 MG TAB PO SCH (20:14)
--- NOTE | 2018-08-08 23:25 | PN ---
PROGRESS NOTE DATE OF SERVICE: 08/08/2018 PRESENTING COMPLAINT: Tired. INTERVAL HISTORY: Patient admitted with femur fracture followed by repair, followed by acute DC. The patient did get a total of 3 units of blood. Also went into CHF and responding well to IV Lasix. The patient has underlying severe aortic stenosis. Breathing better at rest. Did tolerate some diet. REVIEW OF SYSTEMS: Done for constitutional, cardiovascular, GI, pulmonary and relevant findings as above. CURRENT MEDICATIONS: Include IV Lasix 20 mg q.12h. EXAMINATION: VITAL SIGNS: Temperature 97.9, pulse 89, respiration 19, blood pressure 86/51, pulse ox 94 percent on room air. GENERAL APPEARANCE: Propped up in an easy chair, awake, breathing is much improved. EYES: Pupils equal. Conjunctivae pale. NECK: JVD possibly raised. Mass not palpable. RESPIRATORY: Effort increased. LUNGS: Improved air entry. CARDIOVASCULAR: First and second sounds normal. Minimal edema. Ejection systolic murmur. ABDOMEN: Soft, nontender. Liver and spleen not palpable. PSYCHIATRY: Alert and oriented times three. Mood and affect normal. INVESTIGATIONS: White count 7.9, hemoglobin 8.3, potassium 3.9. BUN and creatinine is normal. ASSESSMENT: 1. Acute postop non ST elevation myocardial infarction. The patient declined cardiac catheterization. 2. Severe mitral and tricuspid regurgitation, nonrheumatic. 3. Acute congestive heart failure exacerbation from systolic dysfunction, ejection fraction 40-45 percent from underlying coronary artery disease, with clinical improvement. 4. Left femur IT fracture secondary to fall followed by IM hip screw. 5. Acute postoperative blood loss anemia expected from surgery, status post 2 units of blood. 6. Hypothyroidism. 7. Peripheral neuropathy. 8. Hyperlipidemia. 9. 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 10.Primary osteoarthritis. 11.Severe aortic stenosis, nonrheumatic. The patient has declined surgery intervention in the past. 12.Acute hepatitis likely ischemic. PLAN: Continue current medication and treatment plan. Repeat a BNP and BMP tomorrow morning along with a chest x-ray. Hoping for patient to go back to the [facility] tomorrow. ADVANCED CARE PLANNING: This was discussed with the patient and son at the bedside. I had a lengthy discussion. The patient does wish to be DO NOT RESUSCITATE. Also the son is expressing from the patient that if she was to have another heart attack, then she will opt for a cardiac catheterization. Of course, depending on how she is doing. I did explain to the patient, prognosis is rather guarded with the current ejection fraction, severe aortic stenosis and overall frailty and fragility. Dai catheter will be discontinued. Total time of discussion was about 35 minutes. Care was also discussed with Dr. Smith from Cardiology. The patient is rather frail, lets see how she does and go from there. MMODL / IJN: [id number] /
[2018-08-09] MEDS: IPRATROPIUM-ALBUTEROL 3 ML NEB INHALATION SCH ×7 (03:12→23:20)
[2018-08-09] MEDS: HYDROcodone/APAP 5-325MG 1 EACH TAB PO PRN ×4 (04:53→23:21)
[2018-08-09 05:35] LABS: HCT 29.6 % (34.0-46.0); HGB 9.4 gm/dL (11.4-16.0); Hypochromasia Slight; MCH 30.3 pg (25.0-35.0); MCHC 31.7 g/dL (31.0-37.0); MCV 95.8 fL (80.0-100.0); Mean Platelet Volume 6.2; Platelet Count 323 k/uL (150-450); Poikilocytosis Slight; RBC 3.08 m/uL (3.80-5.40); RDW 14.9 % (11.5-15.5); WBC 10.9 k/uL (3.8-10.6)
[2018-08-09 05:45] LABS: Anion Gap 6 mmol/L; Blood Urea Nitrogen 19 mg/dL (7-17); Calcium 8.1 mg/dL (8.4-10.2); Carbon Dioxide 27 mmol/L (22-30); Chloride 100 mmol/L (98-107); Glucose 112 mg/dL (74-99); Potassium 4.5 mmol/L (3.5-5.1); Sodium 133 mmol/L (137-145)
[2018-08-09] MEDS: LEVOTHYROXINE 75 MCG TAB PO SCH (06:28)
[2018-08-09] MEDS: PANTOPRAZOLE 40 MG TABLET PO SCH (06:30)
--- NOTE | 2018-08-09 08:16 | P.PN ---
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 Patient states she was coming in the house after getting the mail and was trying to close a door with her cane when she lost her footing and fell. Patient states she landed on her left hip. She also fell onto her elbows. She denies hitting her head. She did not lose consciousness. She was not able to get up, she required help. She was unable to ambulate after the fall. Patient subsequently presented to the [facility] ED for evaluation, where she was found to have a left intertrochanteric hip fracture. Today is post-op day #8. Patient's post-operative course has been complicated by an acute coronary event and blood loss anemia requiring transfusion. Patient is alert, sitting up in bed. Patient states she has been walking with therapy and a walker around the room, and in the halls without issue or significant pain. Patient states her pain is currently well-controlled. Patient has no new orthopedic complaints today. Planning for discharge to an ECF today or tomorrow. Vital signs stable. Objective - Vital Signs Vital signs: Vital Signs Temp 97.9 F 08/09/18 04:00 Pulse 94 08/09/18 07:07 Resp 17 08/09/18 06:00 BP 98/58 08/09/18 06:00 Pulse Ox 93 L 08/09/18 06:57 Intake & Output 08/08/18 08/09/18 08/09/18 18:59 06:59 18:59 Output Total 1400 370 Balance -1400 -370 Weight 68.3 kg Output: Urine 1400 370 Other: Voiding Method Bedside Commode Bedside Commode - Exam On exam, the patient is sitting up in bed. Patient is alert and oriented x3. On inspection of the left hip, there are two surgical incisions which show no signs of infection; there is no erythema or drainage. Ecchymosis of lateral left hip, no pain on palpation. Calves are soft and nontender bilaterally. Patient has full range of motion of the ankles and toes bilaterally. Neurovascular is intact of the lower extremities bilaterally. Dorsalis pedis pulse and posterior tibial pulse +2 bilaterally, brisk capillary refill of great toes bilaterally. - Labs CBC & Chem 7: 08/09/18 05:15 08/09/18 05:15 Labs: Abnormal Lab Results - Last 24 Hours (Table) 08/09/18 08/09/18 Range/Units 05:15 05:15 WBC 10.9 H (3.8-10.6) k/uL RBC 3.08 L (3.80-5.40) m/uL Hgb 9.4 L (11.4-16.0) gm/dL Hct 29.6 L (34.0-46.0) % Sodium 133 L (137-145) mmol/L BUN 19 H (7-17) mg/dL Glucose 112 H (74-99) mg/dL Calcium 8.1 L (8.4-10.2) mg/dL Assessment and Plan Assessment: - Left intertrochanteric hip fracture status-post short intramedullary hip screw - Post-operative anemia, status-post transfusion - Status-post acute coronary event Plan: - Patient may weight bear as tolerated on left leg. Up with assistance, up with a walker. - Continue current pain control regimen. - Anticoagulation per medicine and cardiology. - Appreciate medicine and cardiology consults. - Patient is clear for discharge from an orthopedic standpoint. Patient will be discharged to ECF pending medical clearance. - Follow-up with Dr. Skelton in the office in two weeks. - Patient discussed with Dr. Skelton
--- NOTE | 2018-08-09 08:28 | P.PN ---
Subjective Progress Note Date: 08/09/18 Principal diagnosis: Acute non-STEMI This is a pleasant 87-year-old female patient who underwent hip surgery complicated by acute non-ST elevation myocardial infarction. The acute coronary syndrome was treated medically by patient wishes. She underwent an echocardiogram which revealed mildly impaired LV function was EF between 40-45% with evidence of moderate aortic stenosis and severe mitral regurgitation. On follow-up with the patient today, August 092018, she denies having any chest pain or chest discomfort. She is struggling with severe constipation and she did not have any bowel movement for about a week. Hemodynamically she has been maintaining a systolic blood pressure above 90 mmHg and heart rate between 90-100 beats per minutes. The plan is to go to extended care facility later on today. Objective - Vital Signs Vital signs: Vital Signs Temp 97.9 F 08/09/18 04:00 Pulse 94 08/09/18 07:07 Resp 17 08/09/18 06:00 BP 98/58 08/09/18 06:00 Pulse Ox 93 L 08/09/18 06:57 Intake & Output 08/08/18 08/09/18 08/09/18 18:59 06:59 18:59 Output Total 1400 370 Balance -1400 -370 Weight 68.3 kg Output: Urine 1400 370 Other: Voiding Method Bedside Commode Bedside Commode - Constitutional General appearance: Present: no acute distress - Respiratory Respiratory: bilateral: diminished - Cardiovascular Heart sounds: normal: S1, S2 Abnormal Heart Sounds: Present: systolic murmur - Labs CBC & Chem 7: 08/09/18 05:15 08/09/18 05:15 Labs: Abnormal Lab Results - Last 24 Hours (Table) 08/09/18 08/09/18 Range/Units 05:15 05:15 WBC 10.9 H (3.8-10.6) k/uL RBC 3.08 L (3.80-5.40) m/uL Hgb 9.4 L (11.4-16.0) gm/dL Hct 29.6 L (34.0-46.0) % Sodium 133 L (137-145) mmol/L BUN 19 H (7-17) mg/dL Glucose 112 H (74-99) mg/dL Calcium 8.1 L (8.4-10.2) mg/dL Assessment and Plan Assessment: Assessment #1 acute non-ST patient myocardial infarction #2 moderate aortic stenosis #3 severe mitral regurgitation #4 status post hip surgery Plan #1 continue the current medical regimen. Continue dual antiplatelet therapy #2 possible discharge in the next 24 hours.
[2018-08-09] MEDS: HEPARIN SODIUM,PORCINE 5,000 UNIT/ML 1 ML VIAL SQ SCH ×3 (09:01→23:21)
[2018-08-09] MEDS: METOPROLOL TARTRATE 12.5 MG TAB PO SCH ×2 (09:01→20:48)
[2018-08-09] MEDS: CLOPIDOGREL 75 MG TAB PO SCH (09:01)
[2018-08-09] MEDS: FUROSEMIDE 10 MG/ML 2 ML VIAL IV SCH ×2 (09:01→20:47)
[2018-08-09] MEDS: ISOSORBIDE MONONITRATE ER 30 MG TAB.ER.24H PO SCH (09:01)
[2018-08-09] MEDS: GABAPENTIN 100 MG CAP PO SCH ×2 (09:01→20:47)
[2018-08-09] MEDS: ASPIRIN 81 MG PO SCH (09:02)
[2018-08-09] MEDS: LIPASE 5,000/PROTEASE 17,000/AMYLASE 24,000 PO SCH (09:04)
[2018-08-09] MEDS: MULTIVITAMINS, THERA 1 EACH TAB PO SCH (12:20)
[2018-08-09] MEDS: CHOLECALCIFEROL 1,000 UNIT TAB PO SCH ×2 (12:21→12:25)
[2018-08-09] MEDS: MELATONIN 3 MG TABLET PO SCH (20:47)
[2018-08-09] MEDS: PRIMIDONE 50 MG TAB PO SCH (20:48)
[2018-08-09] MEDS: SENNOSIDES-DOCUSATE SODIUM 1 EACH TAB PO SCH (20:48)
[2018-08-10] MEDS: IPRATROPIUM-ALBUTEROL 3 ML NEB INHALATION SCH ×6 (03:17→23:43)
[2018-08-10] MEDS ORDERED: FUROSEMIDE 10 MG/ML 2 ML VIAL IV ONE (03:25)
[2018-08-10 05:48] LABS: HCT 28.6 % (34.0-46.0); HGB 9.1 gm/dL (11.4-16.0); Hypochromasia Slight; MCH 30.2 pg (25.0-35.0); MCHC 31.9 g/dL (31.0-37.0); MCV 94.6 fL (80.0-100.0); Mean Platelet Volume 6.5; Platelet Count 367 k/uL (150-450); Poikilocytosis Slight; RBC 3.02 m/uL (3.80-5.40); RDW 14.8 % (11.5-15.5); WBC 11.2 k/uL (3.8-10.6)
[2018-08-10 06:01] LABS: Anion Gap 7 mmol/L; Blood Urea Nitrogen 23 mg/dL (7-17); Calcium 8.1 mg/dL (8.4-10.2); Carbon Dioxide 25 mmol/L (22-30); Chloride 96 mmol/L (98-107); Glucose 118 mg/dL (74-99); Potassium 4.9 mmol/L (3.5-5.1); Sodium 128 mmol/L (137-145)
[2018-08-10] MEDS: PANTOPRAZOLE 40 MG TABLET PO SCH (06:32)
[2018-08-10] MEDS: LEVOTHYROXINE 75 MCG TAB PO SCH (06:32)
--- NOTE | 2018-08-10 06:37 | XR ---
EXAMINATION TYPE: XR chest 1V portable DATE OF EXAM: 08/10/2018 COMPARISON: 08/05/2018 HISTORY: Respiratory distress TECHNIQUE: Single frontal view of the chest is obtained. FINDINGS: Heart is enlarged. There is pulmonary edema. There is blunting of the costophrenic angles. There are chest leads. IMPRESSION: Congestive heart failure with pleural effusions and pulmonary edema. Edema is worse than last exam.
[2018-08-10] MEDS: FUROSEMIDE 10 MG/ML 4 ML VIAL IV SCH ×2 (08:14→20:19)
--- NOTE | 2018-08-10 08:30 | PN ---
PROGRESS NOTE DATE OF SERVICE: 08/09/2018 PRESENT COMPLAINT: Tired. INTERVAL HISTORY: This patient is seen by me yesterday in the ICU. Patient is status post femur fracture repair followed by acute [place]. Received a total of 3 units of blood. Also, CHF for which she has been on IV Lasix. Also got severe aortic stenosis. Feeling better. Breathing is better. Did tolerate some diet. Propped up in bed. REVIEW OF SYSTEMS: Done for constitutional, cardiovascular, GI, pulmonary; relevant findings as above. CURRENT MEDICATIONS: Include IV Lasix 20 mg q.12. EXAMINATION: Temperature 97.9, pulse 95, respiration 20, blood pressure 120/62, pulse ox 94%. GENERAL APPEARANCE: Lying in bed, awake. EYES: Pupils equal. Conjunctivae are pale. NECK: JVD not raised. Mass not palpable. RESPIRATORY: Effort increased. LUNGS: Improved air entry. CARDIOVASCULAR: First and second sounds are normal. No edema. ABDOMEN: Soft, nontender. Liver and spleen not palpable. PSYCHIATRY: Alert and oriented x3. Mood and affect normal. INVESTIGATIONS: White count 10.9, hemoglobin 9.4, BUN 19, creatinine 0.66. ASSESSMENT: 1. Acute postoperative ST-elevation myocardial infarction. 2. Severe mitral and tricuspid regurgitation, nonrheumatic. 3. Acute congestive heart failure exacerbation from systolic dysfunction, ejection fraction 40%-45% with underlying coronary artery disease, now stabilized. 4. Left femur, right knee fracture secondary to fall, followed by IM hip screw. 5. Acute postoperative blood loss anemia expected from surgery, status post 2 units of blood. 6. Hypothyroidism. 7. Peripheral neuropathy. 8. Hyperlipidemia. 9. 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 10.Primary osteoarthritis. 11.Severe aortic stenosis, nonrheumatic. Patient does not want any surgery. 12.Acute hepatitis, likely ischemic, improved. PLAN: Patient will be switched to oral Lasix in the morning and should be able to be transferred to the rehab in [place]. Care was discussed with the patient. Overall prognosis guarded. MMODL / IJN: [id number] /
[2018-08-10] MEDS ORDERED: FUROSEMIDE 40 MG TAB PO SCH (09:00)
--- NOTE | 2018-08-10 09:04 | P.PN ---
Subjective Progress Note Date: 08/10/18 Principal diagnosis: Acute non-STEMI This is a pleasant 87-year-old female patient who underwent hip surgery complicated by acute non-ST elevation myocardial infarction. The acute coronary syndrome was treated medically by patient wishes. She underwent an echocardiogram which revealed mildly impaired LV function was EF between 40-45% with evidence of moderate aortic stenosis and severe mitral regurgitation. On follow-up with the patient today, August 102018, the patient did have an acute respiratory distress yesterday and she went into congestive heart failure. The chest x-ray showed findings consistent with CHF and pulmonary edema. I am going to switch the patient to Lasix IV at 40 mg twice a day, continue monitor the kidney function and electrolytes, and follow-up with her. The initial plan was for the patient to go to extended care facility but that would be on hold at this point in view of the acute event. Objective - Vital Signs Vital signs: Vital Signs Temp 97.6 F 08/10/18 04:00 Pulse 108 H 08/10/18 08:17 Resp 08/10/18 06:00 BP 101/55 08/10/18 06:00 Pulse Ox 98 08/10/18 06:00 Intake & Output 08/09/18 08/10/18 08/10/18 18:59 06:59 18:59 Weight 68.6 kg Other: Voiding Method Toilet Toilet # Voids 1 1 # Bowel Movements 1 - Constitutional General appearance: Present: no acute distress - Respiratory Respiratory: bilateral: rhonchi - Cardiovascular Rhythm: regular Heart sounds: normal: S1, S2 - Labs CBC & Chem 7: 08/10/18 05:07 08/10/18 05:07 Labs: Abnormal Lab Results - Last 24 Hours (Table) 08/10/18 08/10/18 Range/Units 05:07 05:07 WBC 11.2 H (3.8-10.6) k/uL RBC 3.02 L (3.80-5.40) m/uL Hgb 9.1 L (11.4-16.0) gm/dL Hct 28.6 L (34.0-46.0) % Sodium 128 L (137-145) mmol/L Chloride 96 L (98-107) mmol/L BUN 23 H (7-17) mg/dL Glucose 118 H (74-99) mg/dL Calcium 8.1 L (8.4-10.2) mg/dL Assessment and Plan Assessment: Assessment #1 acute non-ST patient myocardial infarction #2 moderate aortic stenosis #3 severe mitral regurgitation #4 status post hip surgery #5 CHF secondary to systolic dysfunction Plan #1 switch the patient to Lasix IV at 40 mg twice a day #2 continue monitor the kidney function and electrolytes #3 follow-up with the patient
[2018-08-10] MEDS: HEPARIN SODIUM,PORCINE 5,000 UNIT/ML 1 ML VIAL SQ SCH ×2 (09:10→15:58)
[2018-08-10] MEDS: ISOSORBIDE MONONITRATE ER 30 MG TAB.ER.24H PO SCH (09:56)
[2018-08-10] MEDS: METOPROLOL TARTRATE 12.5 MG TAB PO SCH ×2 (09:56→20:22)
[2018-08-10] MEDS: GABAPENTIN 100 MG CAP PO SCH ×2 (09:59→20:20)
[2018-08-10] MEDS: LIPASE 5,000/PROTEASE 17,000/AMYLASE 24,000 PO SCH (09:59)
[2018-08-10] MEDS: ASPIRIN 81 MG PO SCH (09:59)
[2018-08-10] MEDS: CLOPIDOGREL 75 MG TAB PO SCH (09:59)
[2018-08-10] MEDS: HYDROcodone/APAP 5-325MG 1 EACH TAB PO PRN ×5 (10:05→23:18)
--- NOTE | 2018-08-10 11:55 | P.PN ---
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 Patient states she was coming in the house after getting the mail and was trying to close a door with her cane when she lost her footing and fell. Patient states she landed on her left hip. She also fell onto her elbows. She denies hitting her head. She did not lose consciousness. She was not able to get up, she required help. She was unable to ambulate after the fall. Patient subsequently presented to the [facility] ED for evaluation, where she was found to have a left intertrochanteric hip fracture. Today is post-op day #9. Patient's post-operative course has been complicated by an acute coronary event and blood loss anemia requiring transfusion. Patient developed acute respiratory distress overnight and chest xray was consistent with CHF and pulmonary edema. Per cardiology, patient is no longer being discharged to ECF today after this acute overnight event. Currently, patient is alert, sitting up in bed, son is bedside. Patient is requesting pain medication. She has not been up with therapy today. She denies any new orthopedic complaints today. Denies numbness or tingling in the left leg. Objective - Vital Signs Vital signs: Vital Signs Temp 96.8 F L 08/10/18 08:00 Pulse 94 08/10/18 10:00 Resp 20 08/10/18 10:00 BP 101/59 08/10/18 10:00 Pulse Ox 95 08/10/18 10:00 Intake & Output 08/09/18 08/10/18 08/10/18 18:59 06:59 18:59 Output Total 350 Balance -350 Weight 68.6 kg Output: Urine 350 Other: Voiding Method Toilet Toilet Toilet # Voids 1 1 1 # Bowel Movements 1 1 - Exam On exam, the patient is sitting up in bed. Patient is alert and oriented x3. On inspection of the left hip, there are two surgical incisions which show no signs of infection; there is no erythema or drainage. Ecchymosis of lateral left hip, no pain on palpation. Calves are soft and nontender bilaterally. Patient has full range of motion of the ankles and toes bilaterally. Neurovascular is intact of the lower extremities bilaterally. Dorsalis pedis pulse and posterior tibial pulse +2 bilaterally, brisk capillary refill of great toes bilaterally. - Labs CBC & Chem 7: 08/10/18 05:07 08/10/18 05:07 Labs: Abnormal Lab Results - Last 24 Hours (Table) 08/10/18 08/10/18 Range/Units 05:07 05:07 WBC 11.2 H (3.8-10.6) k/uL RBC 3.02 L (3.80-5.40) m/uL Hgb 9.1 L (11.4-16.0) gm/dL Hct 28.6 L (34.0-46.0) % Sodium 128 L (137-145) mmol/L Chloride 96 L (98-107) mmol/L BUN 23 H (7-17) mg/dL Glucose 118 H (74-99) mg/dL Calcium 8.1 L (8.4-10.2) mg/dL Assessment and Plan Assessment: - Left intertrochanteric hip fracture status-post short intramedullary hip screw - CHF - Post-operative anemia, status-post transfusion - Status-post acute coronary event Plan: - Patient may weight bear as tolerated on left leg. Up with assistance, up with a walker. - Continue current pain control regimen. - Anticoagulation per medicine and cardiology. - Appreciate medicine and cardiology consults. - Patient is clear for discharge from an orthopedic standpoint. Patient will be discharged to [facility] pending medical clearance. Following acute events overnight , patient will be kept inpatient, per cardiology. - Follow-up with Dr. Skelton in the office in two weeks after discharge. - Patient discussed with Dr. Skelton
[2018-08-10] MEDS: MULTIVITAMINS, THERA 1 EACH TAB PO SCH (12:09)
[2018-08-10] MEDS: CHOLECALCIFEROL 1,000 UNIT TAB PO SCH (12:09)
[2018-08-10] MEDS ORDERED: CYCLOBENZAPRINE 5 MG TAB PO PRN (14:00)
[2018-08-10] MEDS: PRIMIDONE 50 MG TAB PO SCH (20:22)
[2018-08-10] MEDS: SENNOSIDES-DOCUSATE SODIUM 1 EACH TAB PO SCH (20:25)
[2018-08-10] MEDS: MELATONIN 3 MG TABLET PO SCH (20:26)
[2018-08-11] MEDS: HEPARIN SODIUM,PORCINE 5,000 UNIT/ML 1 ML VIAL SQ SCH ×3 (01:51→17:44)
[2018-08-11] MEDS: IPRATROPIUM-ALBUTEROL 3 ML NEB INHALATION SCH ×6 (03:53→23:32)
[2018-08-11] MEDS ORDERED: FUROSEMIDE 10 MG/ML 10 ML VIAL IV STA (04:47)
--- NOTE | 2018-08-11 05:03 | XR ---
EXAMINATION TYPE: XR chest 1V portable DATE OF EXAM: 08/11/2018 COMPARISON: 08/10/2018 HISTORY: Difficulty breathing TECHNIQUE: Single frontal view of the chest is obtained. FINDINGS: Heart is enlarged. There is pulmonary edema. There are chest leads. There is blunting of c ostophrenic angles. IMPRESSION: Congestive heart failure with pleural effusions and pulmonary edema that is unchanged co mpared to yesterday.
[2018-08-11 05:29] LABS: HCT 28.8 % (34.0-46.0); Hypochromasia Slight; MCH 29.7 pg (25.0-35.0); MCHC 31.4 g/dL (31.0-37.0); MCV 94.3 fL (80.0-100.0); Mean Platelet Volume 6.4; Platelet Count 409 k/uL (150-450); Poikilocytosis Slight; RBC 3.05 m/uL (3.80-5.40); RDW 15.1 % (11.5-15.5); WBC 11.5 k/uL (3.8-10.6)
[2018-08-11] MEDS: HYDROcodone/APAP 5-325MG 1 EACH TAB PO PRN ×4 (05:29→23:51)
[2018-08-11] MEDS: LEVOTHYROXINE 75 MCG TAB PO SCH (05:31)
[2018-08-11 05:43] LABS: Calcium 8.1 mg/dL (8.4-10.2); Potassium 4.5 mmol/L (3.5-5.1)
--- NOTE | 2018-08-11 07:14 | PN ---
PROGRESS NOTE DATE OF SERVICE: 08/10/2018 PRESENTING COMPLAINT: Short of breath. INTERVAL HISTORY: Patient is status post femur fracture followed by repair, followed by acute [place]. Did get 3 units of blood. Also had CHF exacerbation. Patient is doing better in the afternoon but last night patient again became short of breath, had to be started back on IV Lasix. Patient also got severe aortic stenosis, rather tired. REVIEW OF SYSTEMS: Done for constitutional, cardiovascular, GI, pulmonary; relevant findings as above. CURRENT MEDICATIONS: Reviewed that include IV Lasix 40 mg q.12. PHYSICAL EXAMINATION: Temperature 97.2, pulse 92, respiration 23, blood pressure 101/88, pulse ox 95% on 2 L. GENERAL APPEARANCE: Lying in bed, awake eyes: EYES: Pupils equal. Conjunctivae are pale. NECK: JVD not raised. Mass not palpable. RESPIRATORY: Effort increased. LUNGS: Some basal crackles. CARDIOVASCULAR: First and second sounds normal. No edema. ABDOMEN: Soft, nontender. Liver and spleen not palpable. PSYCHIATRY: Alert and oriented x3. Mood and affect tired-appearing. INVESTIGATIONS: White count 11.2, hemoglobin 9.1, potassium 4.9, BUN 23, creatinine 0.68. ProBNP 20,900. Chest x-ray film personally reviewed by me shows cardiomegaly with congestive heart failure. ASSESSMENT: 1. Relapse of acute congestive heart failure exacerbation from systolic dysfunction, ejection fraction 40% to 45%, underlying coronary artery disease worsening. 2. Acute postoperative ST-elevation myocardial infarction. 3. Severe mitral and tricuspid regurgitation, nonrheumatic. 4. Left femur neck fracture followed by IM hip screw. 5. Acute postoperative blood loss anemia expected from surgery. Patient did get 2 units of blood. 6. Hypothyroidism. 7. Peripheral neuropathy. 8. Hyperlipidemia. 9. 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 10.Primary osteoarthritis. 11.Severe aortic stenosis, nonrheumatic. Patient had declined any surgery in the past. 12.Acute hepatitis likely ischemic, improved. PLAN: The patient is not doing too well; is on IV Lasix given the combination of acute [place], poor EF and severe aortic stenosis. Prognosis is guarded. Continue with IV diuresis. MMODL / IJN: [id number] /
--- NOTE | 2018-08-11 07:53 | P.PN ---
Subjective Progress Note Date: 08/11/18 Principal diagnosis: Acute non-STEMI This is a pleasant 87-year-old female patient who underwent hip surgery complicated by acute non-ST elevation myocardial infarction. The acute coronary syndrome was treated medically by patient wishes. She underwent an echocardiogram which revealed mildly impaired LV function was EF between 40-45% with evidence of moderate aortic stenosis and severe mitral regurgitation. On follow-up with the patient today, August [id number], the patient continues to be in mild acute respiratory distress. Yesterday I did start her on Lasix IV. She did urinate well. The creatinine continues to be stable. The chest x- ray from today continues to show findings consistent with CHF and pulmonary edema as well as pleural effusion bilaterally. I am going to consider starting the patient on Lasix drip and continue follow-up with the creatinine and kidney function as well as with electrolytes. Objective - Vital Signs Vital signs: Vital Signs Temp 97.7 F 08/10/18 20:00 Pulse 86 08/11/18 07:29 Resp 18 08/11/18 06:00 BP 103/60 08/11/18 06:00 Pulse Ox 96 08/11/18 06:00 Intake & Output 08/10/18 08/11/18 08/11/18 18:59 06:59 18:59 Output Total 700 150 Balance -700 -150 Weight 69 kg Output: Urine 700 150 Other: Voiding Method Toilet Toilet # Voids 1 # Bowel Movements 1 - Constitutional General appearance: Present: no acute distress - Respiratory Respiratory: bilateral: diminished, rales - Cardiovascular Rhythm: regular Heart sounds: normal: S1, S2 - Labs CBC & Chem 7: 08/11/18 04:48 08/11/18 04:48 Labs: Abnormal Lab Results - Last 24 Hours (Table) 08/11/18 08/11/18 Range/Units 04:48 04:48 WBC 11.5 H (3.8-10.6) k/uL RBC 3.05 L (3.80-5.40) m/uL Hgb 9.0 L (11.4-16.0) gm/dL Hct 28.8 L (34.0-46.0) % Sodium 129 L (137-145) mmol/L Chloride 95 L (98-107) mmol/L BUN 25 H (7-17) mg/dL Glucose 143 H (74-99) mg/dL Calcium 8.1 L (8.4-10.2) mg/dL Assessment and Plan Assessment: Assessment #1 acute non-ST patient myocardial infarction #2 moderate aortic stenosis #3 severe mitral regurgitation #4 status post hip surgery #5 CHF secondary to systolic dysfunction Plan #1 start the patient on Lasix drip #2 continue monitor the kidney function and electrolytes #3 follow-up with the patient
[2018-08-11] MEDS: ISOSORBIDE MONONITRATE ER 30 MG TAB.ER.24H PO SCH (09:30)
[2018-08-11] MEDS: FUROSEMIDE 250 MG in SODIUM CHLORIDE 0.9% 225 ML IVP SCH (10:50)
[2018-08-11] MEDS: PANTOPRAZOLE 40 MG TABLET PO SCH (10:51)
[2018-08-11] MEDS: GABAPENTIN 100 MG CAP PO SCH ×2 (10:53→21:10)
[2018-08-11] MEDS: CLOPIDOGREL 75 MG TAB PO SCH (10:53)
[2018-08-11] MEDS: LIPASE 5,000/PROTEASE 17,000/AMYLASE 24,000 PO SCH (10:54)
[2018-08-11] MEDS: METOPROLOL TARTRATE 12.5 MG TAB PO SCH ×2 (10:54→21:10)
[2018-08-11] MEDS: ASPIRIN 81 MG PO SCH (10:58)
[2018-08-11] MEDS: CHOLECALCIFEROL 1,000 UNIT TAB PO SCH (11:45)
[2018-08-11] MEDS: MULTIVITAMINS, THERA 1 EACH TAB PO SCH (11:45)
--- NOTE | 2018-08-11 12:06 | P.PN ---
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 Patient states she was coming in the house after getting the mail and was trying to close a door with her cane when she lost her footing and fell. Patient states she landed on her left hip. She also fell onto her elbows. She denies hitting her head. She did not lose consciousness. She was not able to get up, she required help. She was unable to ambulate after the fall. Patient subsequently presented to the [facility] ED for evaluation, where she was found to have a left intertrochanteric hip fracture. Today is post-op day #10. Patient's post-operative course has been complicated by an acute coronary event and blood loss anemia requiring transfusion. Patient developed acute respiratory distress and chest xray was consistent with CHF and pulmonary edema. Per cardiology, patient is no longer being discharged to [facility] as originally planned and she will remain inpatient. Catheter was placed today. Patient is currently on a Lasix drip. Currently, patient is alert, sitting up in bed, family is bedside. She states her pain is currently well-controlled. She denies any new orthopedic complaints today. Denies numbness or tingling in the left leg. Objective - Vital Signs Vital signs: Vital Signs Temp 97.7 F 08/10/18 20:00 Pulse 103 H 08/11/18 10:52 Resp 18 08/11/18 06:00 BP 103/60 08/11/18 06:00 Pulse Ox 96 08/11/18 06:00 Intake & Output 08/10/18 08/11/18 08/11/18 18:59 06:59 18:59 Output Total 700 150 Balance -700 -150 Weight 69 kg Output: Urine 700 150 Other: Voiding Method Toilet Toilet # Voids 1 # Bowel Movements 1 - Exam On exam, the patient is sitting up in bed. Patient is alert and oriented x3. On inspection of the left hip, there are two surgical incisions which show no signs of infection; there is no erythema or drainage. Ecchymosis of lateral left hip, no pain on palpation. Calves are soft and nontender bilaterally. Patient has full range of motion of the ankles and toes bilaterally. Neurovascular is intact of the lower extremities bilaterally. Dorsalis pedis pulse and posterior tibial pulse +2 bilaterally, brisk capillary refill of great toes bilaterally. - Labs CBC & Chem 7: 08/11/18 04:48 08/11/18 04:48 Labs: Abnormal Lab Results - Last 24 Hours (Table) 08/11/18 08/11/18 Range/Units 04:48 04:48 WBC 11.5 H (3.8-10.6) k/uL RBC 3.05 L (3.80-5.40) m/uL Hgb 9.0 L (11.4-16.0) gm/dL Hct 28.8 L (34.0-46.0) % Sodium 129 L (137-145) mmol/L Chloride 95 L (98-107) mmol/L BUN 25 H (7-17) mg/dL Glucose 143 H (74-99) mg/dL Calcium 8.1 L (8.4-10.2) mg/dL Assessment and Plan Assessment: - Left intertrochanteric hip fracture status-post short intramedullary hip screw - CHF - Post-operative anemia, status-post transfusion - Status-post acute coronary event Plan: - Patient may weight bear as tolerated on left leg. Up with assistance, up with a walker. - Continue current pain control regimen. - Anticoagulation per medicine and cardiology. - Appreciate medicine and cardiology consults. - Patient is clear for discharge from an orthopedic standpoint. Patient will be discharged to [facility] pending medical clearance. Following develop of CHF, patient will be kept inpatient, per cardiology. - Follow-up with Dr. Skelton in the office in two weeks after discharge. - Patient discussed with Dr. Skelton
[2018-08-11 17:00] LABS: Amorphous Sediment,Urine Rare /hpf; Appearance,Urine Cloudy (Clear); Bilirubin,Urine Negative (Negative); Blood,Urine Moderate (Negative); Color,Urine Yellow; Glucose,Urine (UA) Negative (Negative); Hyaline Casts,Urine 29 /lpf (0-2); Ketones,Urine Negative (Negative); Leukocyte Esterase,Urine Large (Negative); Mucus,Urine Occasional /hpf; Nitrite,Urine Negative (Negative); PH, Urine 5.5 (5.0-8.0); Protein,Urine Trace (Negative); RBC,Urine 31 /hpf (0-5); Squamous Epithelial Cell,Urine 1 /hpf (0-4); Urobilinogen,Urine <2.0 mg/dL (<2.0); WBC,Urine >182 /hpf (0-5)
[2018-08-11] MEDS: SENNOSIDES-DOCUSATE SODIUM 1 EACH TAB PO SCH (21:10)
[2018-08-11] MEDS: PRIMIDONE 50 MG TAB PO SCH (21:10)
[2018-08-11] MEDS: MELATONIN 3 MG TABLET PO SCH (21:10)
[2018-08-12] MEDS: HEPARIN SOD,PORK IN 0.45% NACL 25,000 UNIT in 0.45% NACL 1 250ML.BAG IV SCH (00:04)
[2018-08-12] MEDS: HEPARIN SODIUM,PORCINE 5,000 UNIT/ML 1 ML VIAL SQ SCH ×4 (00:42→23:13)
[2018-08-12] MEDS: IPRATROPIUM-ALBUTEROL 3 ML NEB INHALATION SCH ×5 (03:58→20:05)
[2018-08-12] MEDS: HYDROcodone/APAP 5-325MG 1 EACH TAB PO PRN ×4 (04:16→21:36)
[2018-08-12] MEDS: PANTOPRAZOLE 40 MG TABLET PO SCH (06:26)
[2018-08-12] MEDS: LEVOTHYROXINE 75 MCG TAB PO SCH (06:26)
[2018-08-12 06:53] LABS: HCT 27.1 % (34.0-46.0); HGB 8.9 gm/dL (11.4-16.0); Hypochromasia Slight; MCH 30.8 pg (25.0-35.0); MCHC 32.7 g/dL (31.0-37.0); MCV 94.3 fL (80.0-100.0); Mean Platelet Volume 6.8; Platelet Count 364 k/uL (150-450); RBC 2.88 m/uL (3.80-5.40); RDW 15.6 % (11.5-15.5); WBC 9.9 k/uL (3.8-10.6)
[2018-08-12 07:11] LABS: Calcium 7.7 mg/dL (8.4-10.2); Potassium 3.7 mmol/L (3.5-5.1)
--- NOTE | 2018-08-12 07:21 | PN ---
PROGRESS NOTE DATE OF SERVICE: 08/11/2018. PRESENTING COMPLAINT: Short of breath. INTERVAL HISTORY: This patient is seen by me yesterday evening. Patient is status post femur fracture followed by repair followed by an acute [place]. Did get 3 units of blood. Also gone into CHF exacerbation. Last evening, patient again became short of breath. Chest x-ray showed worsening CHF, was seen by Cardiology, Dr. Smith. This morning, put on the Lasix drip, also use of bronchodilators. Patient also has got underlying severe aortic stenosis. Breathing a shade better, feels really tired, exhausted. Did eat a little bit. REVIEW OF SYSTEMS: Done for constitutional, cardiovascular, GI, pulmonary; relevant findings as above. CURRENT MEDICATIONS: Reviewed that include Lasix drip. PHYSICAL EXAMINATION: Temperature 97.4, pulse 99, respirations 15, blood pressure 125/66, pulse ox 97% on 2 L. GENERAL APPEARANCE: Sitting up in a chair, tired-appearing. EYES: Pupils equal, conjunctivae are pale. NECK: JVD raised. Mass not palpable. RESPIRATORY: Effort increased. LUNGS: Some basal crackles. CARDIOVASCULAR: First and second sounds normal, no edema. ABDOMEN: Soft, nontender. Liver and spleen not palpable. PSYCHIATRY: Patient is rather tired-appearing, answering questions. INVESTIGATIONS: Sodium 129, BUN 25, creatinine 0.83. ASSESSMENT: 1. Relapse of acute congestive heart failure exacerbation from systolic dysfunction, ejection fraction 40% to 45%, underlying coronary artery disease. Again, worsening. Patient will be put back on Lasix drip. 2. Acute postoperative ST-elevation myocardial infarction. 3. Severe mitral and tricuspid regurgitation, nonrheumatic. 4. Left femur neck fracture followed by IM hip screw. 5. Acute postoperative blood loss anemia expected from surgery, status post 3 units of blood. 6. Hypothyroidism. 7. Peripheral neuropathy, idiopathic. 8. Hyperlipidemia. 9. 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 10.Primary osteoarthritis. 11.Severe aortic stenosis, nonrheumatic. Patient had declined surgery in the past. 12.Acute hepatitis, likely ischemic. PLAN: Patient is not doing too well, now has been put on a Lasix drip. Other medications to continue. Given the severe aortic stenosis and patient has been rather frail, prognosis remains rather guarded. Continue with current treatment plan. will work with Cardiology. MMODL / IJN: [id number] /
[2018-08-12] MEDS ORDERED: POTASSIUM CHLORIDE ER 20 MEQ TAB.ER PO SCH (09:00)
[2018-08-12] MEDS: METOPROLOL TARTRATE 12.5 MG TAB PO SCH ×2 (09:22→21:11)
[2018-08-12] MEDS: LIPASE 5,000/PROTEASE 17,000/AMYLASE 24,000 PO SCH (09:23)
[2018-08-12] MEDS: MULTIVITAMINS, THERA 1 EACH TAB PO SCH (09:23)
[2018-08-12] MEDS: CHOLECALCIFEROL 1,000 UNIT TAB PO SCH (09:23)
[2018-08-12] MEDS: CLOPIDOGREL 75 MG TAB PO SCH (09:23)
[2018-08-12] MEDS: ISOSORBIDE MONONITRATE ER 30 MG TAB.ER.24H PO SCH (09:23)
[2018-08-12] MEDS: ASPIRIN 81 MG PO SCH (09:23)
[2018-08-12] MEDS: GABAPENTIN 100 MG CAP PO SCH ×2 (09:23→21:11)
--- NOTE | 2018-08-12 10:17 | P.PN ---
Subjective Progress Note Date: 08/12/18 Principal diagnosis: - Left intertrochanteric hip fracture status-post short intramedullary hip screw - CHF - Post-operative anemia, status-post transfusion - Status-post acute coronary event This is a very pleasant 87-year-old female with a past medical history of CVA, 100% blockage of the right carotid artery, aortic valve disease that presented to the emergency department 07/31/18 with complaints of left hip pain following a fall. Patient states she was coming in the house after getting the mail and was trying to close a door with her cane when she lost her footing and fell. Patient states she landed on her left hip. She also fell onto her elbows. She denies hitting her head. She did not lose consciousness. She was not able to get up, she required help. She was unable to ambulate after the fall. Patient subsequently presented to the [facility] ED for evaluation, where she was found to have a left intertrochanteric hip fracture. Today is post-op day #11. Patient's post-operative course has been complicated by an acute coronary event and blood loss anemia requiring transfusion. Patient developed acute respiratory distress and chest xray was consistent with CHF and pulmonary edema. Per cardiology, patient is no longer being discharged to [facility] as originally planned and she will remain inpatient. She has been transferred out of ICU, and placed on cardiology floor. Patient is currently on a Lasix drip. Currently, patient is alert, sitting up in bed, family is bedside. She states her pain is currently well-controlled. She denies any new orthopedic complaints today. Denies numbness or tingling in the left leg. Objective - Vital Signs Vital signs: Vital Signs Temp 97.7 F 08/12/18 08:50 Pulse 102 H 08/12/18 08:50 Resp 18 08/12/18 08:50 BP 103/65 08/12/18 08:50 Pulse Ox 94 L 08/12/18 08:50 Intake & Output 08/11/18 08/12/18 08/12/18 18:59 06:59 18:59 Intake Total 1296 60 360 Output Total 1999 1065 Balance -704 -100 360 Weight 51.5 kg Intake: IV 80 60 0.9 40 35 Furosemide 250 mg In 40 25 Sodium Chloride 0.9% 225 ml @ 5 MG/HR 5 mls/hr IVP .Q24H [facility] Rx#:[id number] Oral 1216 360 Output: Urine 2000 1065 Other: Voiding Method Indwelling Catheter Indwelling Catheter - Exam On exam, the patient is sitting up in bed. Patient is alert and oriented x3. On inspection of the left hip, there are two surgical incisions which show no signs of infection; there is no erythema or drainage. Ecchymosis of lateral left hip, no pain on palpation. Calves are soft and nontender bilaterally. Patient has full range of motion of the ankles and toes bilaterally. Neurovascular is intact of the lower extremities bilaterally. Dorsalis pedis pulse and posterior tibial pulse +2 bilaterally, brisk capillary refill of great toes bilaterally. - Labs CBC & Chem 7: 08/12/18 06:11 08/12/18 06:11 Labs: Abnormal Lab Results - Last 24 Hours (Table) 08/11/18 08/12/18 08/12/18 Range/Units 16:15 06:11 06:11 RBC 2.88 L (3.80-5.40) m/uL Hgb 8.9 L (11.4-16.0) gm/dL Hct 27.1 L (34.0-46.0) % RDW 15.6 H (11.5-15.5) % Sodium 132 L (137-145) mmol/L BUN 22 H (7-17) mg/dL Glucose 109 H (74-99) mg/dL Calcium 7.7 L (8.4-10.2) mg/dL Urine Appearance Cloudy H (Clear) Urine Protein Trace H (Negative) Urine Blood Moderate H (Negative) Ur Leukocyte Esterase Large H (Negative) Urine RBC 31 H (0-5) /hpf Urine WBC >182 H (0-5) /hpf Urine WBC Clumps Many H (None) /hpf Amorphous Sediment Rare H (None) /hpf Hyaline Casts 29 H (0-2) /lpf Urine Mucus Occasional H (None) /hpf Microbiology - Last 24 Hours (Table) 08/11/18 16:15 Urine Culture - Preliminary Urine,Catheterized Assessment and Plan Assessment: - Left intertrochanteric hip fracture status-post short intramedullary hip screw - CHF - Post-operative anemia, status-post transfusion - Status-post acute coronary event Plan: - Patient may weight bear as tolerated on left leg. Up with assistance, up with a walker. - Continue pain management. - Appreciate medicine and cardiology consults. - Clear for discharge from orthopedic standpoint. Follow-up with Dr. Skelton in the office in two weeks after discharge. - Patient discussed with Dr. Skelton
[2018-08-12] MEDS ORDERED: HYDROmorphone 2 MG TAB PO PRN (10:29)
--- NOTE | 2018-08-12 11:46 | XR ---
EXAMINATION TYPE: XR chest 1V portable DATE OF EXAM: 08/12/2018 COMPARISON: 08/11/2018 INDICATION: CHF short of breath TECHNIQUE: Single frontal view of the chest is obtained. FINDINGS: The heart size is mildly prominent. The pulmonary vasculature is normal. Bibasilar infiltrates and small bilateral pleural effusions are present. Findings are similar to comp zanason. IMPRESSION: 1. Stable small bilateral pleural effusions and bibasilar infiltrates
--- NOTE | 2018-08-12 13:47 | P.PN ---
Subjective Progress Note Date: 08/12/18 Principal diagnosis: Acute non-STEMI This is a pleasant 87-year-old female patient who underwent hip surgery complicated by acute non-ST elevation myocardial infarction. The acute coronary syndrome was treated medically by patient wishes. She underwent an echocardiogram which revealed mildly impaired LV function was EF between 40-45% with evidence of moderate aortic stenosis and severe mitral regurgitation. On follow-up with the patient today, 08/12/2018, she is feeling better in terms of shortness of breath. She continues to be on Lasix drip. The creatinine continues to be stable. The chest x-ray from today continues to show right lateral pleural effusion and bilateral infiltrates. I would continue the patient on Lasix drip for additional 24 hours and continue monitor the kidney function and electrolytes. Beside that she continues to be on dual antiplatelet therapy along with a statin. Objective - Vital Signs Vital signs: Vital Signs Temp 97.7 F 08/12/18 08:50 Pulse 96 08/12/18 11:39 Resp 18 08/12/18 11:05 BP 97/59 08/12/18 11:05 Pulse Ox 93 L 08/12/18 11:05 Intake & Output 08/11/18 08/12/18 08/12/18 18:59 06:59 18:59 Intake Total 1296 60 720 Output Total 1999 1065 Balance -704 -1005 720 Weight 51.5 kg Intake: IV 80 60 0.9 40 35 Furosemide 250 mg In 40 25 Sodium Chloride 0.9% 225 ml @ 5 MG/HR 5 mls/hr IVP .Q24H [facility] Rx#:[id number] Oral 1216 720 Output: Urine 1999 1065 Other: Voiding Method Indwelling Catheter Indwelling Catheter Indwelling Catheter - Constitutional General appearance: Present: no acute distress - Respiratory Respiratory: bilateral: rales - Cardiovascular Rhythm: regular Heart sounds: normal: S1, S2 Abnormal Heart Sounds: Present: systolic murmur - Labs CBC & Chem 7: 08/12/18 06:11 08/12/18 06:11 Labs: Abnormal Lab Results - Last 24 Hours (Table) 08/11/18 08/12/18 08/12/18 Range/Units 16:15 06:11 06:11 RBC 2.88 L (3.80-5.40) m/uL Hgb 8.9 L (11.4-16.0) gm/dL Hct 27.1 L (34.0-46.0) % RDW 15.6 H (11.5-15.5) % Sodium 132 L (137-145) mmol/L BUN 22 H (7-17) mg/dL Glucose 109 H (74-99) mg/dL Calcium 7.7 L (8.4-10.2) mg/dL Urine Appearance Cloudy H (Clear) Urine Protein Trace H (Negative) Urine Blood Moderate H (Negative) Ur Leukocyte Esterase Large H (Negative) Urine RBC 31 H (0-5) /hpf Urine WBC >182 H (0-5) /hpf Urine WBC Clumps Many H (None) /hpf Amorphous Sediment Rare H (None) /hpf Hyaline Casts 29 H (0-2) /lpf Urine Mucus Occasional H (None) /hpf Microbiology - Last 24 Hours (Table) 08/11/18 16:15 Urine Culture - Preliminary Urine,Catheterized Assessment and Plan Assessment: Assessment #1 acute non-ST patient myocardial infarction #2 moderate aortic stenosis #3 severe mitral regurgitation #4 status post hip surgery #5 CHF secondary to systolic dysfunction Plan #1 continue the patient on Lasix drip #2 continue monitor the kidney function and electrolytes #3 follow-up with the patient
[2018-08-12 15:41] VITALS: BMI 19.5
[2018-08-12] MEDS: FUROSEMIDE 250 MG in SODIUM CHLORIDE 0.9% 225 ML IVP SCH (20:57)
[2018-08-12] MEDS: SENNOSIDES-DOCUSATE SODIUM 1 EACH TAB PO SCH (21:11)
[2018-08-12] MEDS: MELATONIN 3 MG TABLET PO SCH (21:11)
[2018-08-12] MEDS: PRIMIDONE 50 MG TAB PO SCH (21:11)
[2018-08-13] MEDS: IPRATROPIUM-ALBUTEROL 3 ML NEB INHALATION SCH ×8 (00:33→23:38)
[2018-08-13] MEDS: LEVOTHYROXINE 75 MCG TAB PO SCH (06:11)
[2018-08-13] MEDS: PANTOPRAZOLE 40 MG TABLET PO SCH (06:11)
[2018-08-13 07:12] LABS: Anisocytosis Slight; HGB 10.2 gm/dL (11.4-16.0); Hypochromasia Moderate; MCH 30.6 pg (25.0-35.0); MCHC 31.7 g/dL (31.0-37.0); MCV 96.5 fL (80.0-100.0); Macrocytosis Slight; Mean Platelet Volume 7.1; Platelet Count 497 k/uL (150-450); Poikilocytosis Slight; RBC 3.32 m/uL (3.80-5.40); RDW 16.3 % (11.5-15.5); WBC 12.6 k/uL (3.8-10.6)
[2018-08-13 07:27] LABS: Calcium 8.3 mg/dL (8.4-10.2); Potassium 4.2 mmol/L (3.5-5.1)
--- NOTE | 2018-08-13 08:30 | XR ---
EXAMINATION TYPE: XR chest 1V portable DATE OF EXAM: 08/13/2018 HISTORY: Shortness of breath. COMPARISON: None. TECHNIQUE: Single view of the chest is submitted. FINDINGS: Perihilar and basilar infiltrates as well as pleural effusions. Underlying pulmonary venous congestio n. The heart is stable. Hilar and mediastinal structures are within normal limits. Degenerative changes are seen of the dorsal spine. IMPRESSION: 1. Findings compatible with pulmonary edema. Infiltrates of other etiology not excluded.
[2018-08-13] MEDS: HYDROcodone/APAP 5-325MG 1 EACH TAB PO PRN ×3 (09:27→22:13)
[2018-08-13] MEDS: CLOPIDOGREL 75 MG TAB PO SCH (09:27)
[2018-08-13] MEDS: ASPIRIN 81 MG PO SCH (09:27)
[2018-08-13] MEDS: LIPASE 5,000/PROTEASE 17,000/AMYLASE 24,000 PO SCH (09:28)
[2018-08-13] MEDS: GABAPENTIN 100 MG CAP PO SCH ×2 (09:28→19:57)
[2018-08-13] MEDS: HEPARIN SODIUM,PORCINE 5,000 UNIT/ML 1 ML VIAL SQ SCH ×3 (09:28→22:14)
[2018-08-13] MEDS: CHOLECALCIFEROL 1,000 UNIT TAB PO SCH (09:28)
[2018-08-13] MEDS: METOPROLOL TARTRATE 12.5 MG TAB PO SCH ×2 (09:28→19:57)
[2018-08-13] MEDS: ISOSORBIDE MONONITRATE ER 30 MG TAB.ER.24H PO SCH (09:28)
[2018-08-13] MEDS: MULTIVITAMINS, THERA 1 EACH TAB PO SCH (09:28)
[2018-08-13] MEDS: FUROSEMIDE 250 MG in SODIUM CHLORIDE 0.9% 225 ML IVP SCH (09:33)
--- NOTE | 2018-08-13 09:35 | P.PN ---
Subjective Progress Note Date: 08/13/18 Principal diagnosis: Acute non-STEMI This is a pleasant 87-year-old female patient who underwent hip surgery complicated by acute non-ST elevation myocardial infarction. The acute coronary syndrome was treated medically by patient wishes. She underwent an echocardiogram which revealed mildly impaired LV function was EF between 40-45% with evidence of moderate aortic stenosis and severe mitral regurgitation. On follow-up with the patient today, 08/13/2018, she is feeling better in terms of shortness of breath. She continues to be on Lasix drip. The creatinine continues to be stable. The chest x-ray from today continues to show right lateral pleural effusion and bilateral infiltrates. I would continue the patient on Lasix drip for additional 24 hours and continue monitor the kidney function and electrolytes. Beside that she continues to be on dual antiplatelet therapy along with a statin. Objective - Vital Signs Vital signs: Vital Signs Temp 97.5 F L 08/13/18 07:45 Pulse 98 08/13/18 09:01 Resp 18 08/13/18 07:45 BP 115/69 08/13/18 07:45 Pulse Ox 91 L 08/13/18 07:45 Intake & Output 08/12/18 08/13/18 08/13/18 18:59 06:59 18:59 Intake Total 960 840 413.583 Output Total 675 500 Balance 285 340 413.583 Weight 51.5 kg 54 kg Intake: Intake, IV Titration 233.583 Amount Furosemide 250 mg In 233.583 Sodium Chloride 0.9% 225 ml @ 5 MG/HR 5 mls/hr IVP .Q24H [facility] Rx#:[id number] Oral 960 840 180 Output: Urine 675 500 Other: Voiding Method Indwelling Catheter Indwelling Catheter - Constitutional General appearance: Present: no acute distress - Respiratory Respiratory: bilateral: rales - Cardiovascular Rhythm: regular Heart sounds: normal: S1, S2 Abnormal Heart Sounds: Present: systolic murmur - Labs CBC & Chem 7: 08/13/18 06:21 08/13/18 06:21 Labs: Abnormal Lab Results - Last 24 Hours (Table) 08/13/18 08/13/18 08/13/18 Range/Units 06:21 06:21 06:21 WBC 12.6 H (3.8-10.6) k/uL RBC 3.32 L (3.80-5.40) m/uL Hgb 10.2 L (11.4-16.0) gm/dL Hct 32.0 L (34.0-46.0) % RDW 16.3 H (11.5-15.5) % Plt Count 497 H (150-450) k/uL D-Dimer 4.28 H (<0.60) mg/L FEU Sodium 133 L (137-145) mmol/L Chloride 96 L (98-107) mmol/L BUN 21 H (7-17) mg/dL Glucose 146 H (74-99) mg/dL Calcium 8.3 L (8.4-10.2) mg/dL Microbiology - Last 24 Hours (Table) 08/11/18 16:15 Urine Culture - Preliminary Urine,Catheterized Gram Neg Bacilli Assessment and Plan Assessment: Assessment #1 acute non-ST patient myocardial infarction #2 moderate aortic stenosis #3 severe mitral regurgitation #4 status post hip surgery #5 CHF secondary to systolic dysfunction Plan #1 continue the patient on Lasix drip #2 continue monitor the kidney function and electrolytes #3 follow-up with the patient
[2018-08-13] MEDS ORDERED: ACETAMINOPHEN TAB 325 MG TAB PO PRN (11:54)
[2018-08-13] MEDS ORDERED: PSYLLIUM HUSK 100% 6 GM PACKET PO SCH (12:00)
--- NOTE | 2018-08-13 14:30 | P.PN ---
Subjective Progress Note Date: 08/13/18 Principal diagnosis: - Left intertrochanteric hip fracture status-post short intramedullary hip screw - CHF - Post-operative anemia, status-post transfusion - Status-post acute coronary event This is a very pleasant 87-year-old female with a past medical history of CVA, 100% blockage of the right carotid artery, aortic valve disease that presented to the emergency department 07/31/18 with complaints of left hip pain following a fall. Patient states she was coming in the house after getting the mail and was trying to close a door with her cane when she lost her footing and fell. Patient states she landed on her left hip. She also fell onto her elbows. She denies hitting her head. She did not lose consciousness. She was not able to get up, she required help. She was unable to ambulate after the fall. Patient subsequently presented to the [facility] ED for evaluation, where she was found to have a left intertrochanteric hip fracture. Today is post-op day #12. Patient's post-operative course has been complicated by an acute coronary event and blood loss anemia requiring transfusion. Patient developed acute respiratory distress and chest xray was consistent with CHF and pulmonary edema. Per cardiology, patient is no longer being discharged to [facility] as originally planned and she will remain inpatient. She has been transferred out of ICU, and placed on cardiology floor. Currently, patient is alert, sitting up in the chair. She states her pain is currently well-controlled. She denies any new orthopedic complaints today. Denies numbness or tingling in the left leg. Objective - Vital Signs Vital signs: Vital Signs Temp 97.5 F L 08/13/18 07:45 Pulse 100 08/13/18 12:36 Resp 16 08/13/18 11:20 BP 96/57 08/13/18 11:20 Pulse Ox 96 08/13/18 11:20 Intake & Output 08/12/18 08/13/18 08/13/18 18:59 06:59 18:59 Intake Total 960 840 413.583 Output Total 675 500 Balance 285 340 413.583 Weight 51.5 kg 54 kg Intake: Intake, IV Titration 233.583 Amount Furosemide 250 mg In 233.583 Sodium Chloride 0.9% 225 ml @ 5 MG/HR 5 mls/hr IVP .Q24H [facility] Rx#:[id number] Oral 960 840 180 Output: Urine 675 500 Other: Voiding Method Indwelling Catheter Indwelling Catheter Indwelling Catheter - Exam On exam, the patient is sitting up in the chair. Patient is alert and oriented x3. On inspection of the left hip, there are two surgical incisions which show no signs of infection; there is no erythema or drainage. Ecchymosis of lateral left hip, no pain on palpation. Calves are soft and nontender bilaterally. Patient has full range of motion of the ankles and toes bilaterally. Neurovascular is intact of the lower extremities bilaterally. Dorsalis pedis pulse and posterior tibial pulse +2 bilaterally, brisk capillary refill of great toes bilaterally. Urinary catheter in place. - Labs CBC & Chem 7: 08/13/18 06:21 08/13/18 06:21 Labs: Abnormal Lab Results - Last 24 Hours (Table) 08/13/18 08/13/18 08/13/18 Range/Units 06:21 06:21 06:21 WBC 12.6 H (3.8-10.6) k/uL RBC 3.32 L (3.80-5.40) m/uL Hgb 10.2 L (11.4-16.0) gm/dL Hct 32.0 L (34.0-46.0) % RDW 16.3 H (11.5-15.5) % Plt Count 497 H (150-450) k/uL D-Dimer 4.28 H (<0.60) mg/L FEU Sodium 133 L (137-145) mmol/L Chloride 96 L (98-107) mmol/L BUN 21 H (7-17) mg/dL Glucose 146 H (74-99) mg/dL Calcium 8.3 L (8.4-10.2) mg/dL Microbiology - Last 24 Hours (Table) 08/11/18 16:15 Urine Culture - Preliminary Urine,Catheterized Gram Neg Bacilli Assessment and Plan Assessment: - Left intertrochanteric hip fracture status-post short intramedullary hip screw - CHF - Post-operative anemia, status-post transfusion - Status-post acute coronary event Plan: - Patient may weight bear as tolerated on left leg. Up with assistance, up with a walker. - We will plan to take her nishi out of the hip and an xray of the left hip prior to discharge. - Clear for discharge from orthopedic standpoint. We will continue to follow while she remains inpatient. - Follow-up with Dr. Skelton in the office in one month after discharge. - Patient discussed with Dr. Skelton
[2018-08-13] MEDS: SENNOSIDES-DOCUSATE SODIUM 1 EACH TAB PO SCH (19:57)
[2018-08-13] MEDS: PRIMIDONE 50 MG TAB PO SCH (19:57)
[2018-08-13] MEDS: MELATONIN 3 MG TABLET PO SCH (20:02)
[2018-08-13] MEDS ORDERED: RX INFO: IV CONTRAST WAS GIVEN 1 EACH MISC MISCELLANE PRN (21:15)
--- NOTE | 2018-08-13 22:40 | PN ---
PROGRESS NOTE DATE OF SERVICE: 08/12/2018. PRESENTING COMPLAINT: Short of breath. INTERVAL HISTORY: This patient was seen by me yesterday. Status post femur fracture followed by repair and then had an acute [place]. Did get 3 units of blood. Also had CHF exacerbation. The patient remains intermittently short of breath. Has been on Lasix drip. Does get rather easily short winded. Eating small amounts, tired. REVIEW OF SYSTEMS: Done for constitutional, cardiovascular, GI, pulmonary; relevant findings as above. CURRENT MEDICATIONS: Reviewed that include Lasix drip. PHYSICAL EXAMINATION: VITAL SIGNS: Temperature 97.8, pulse 109, respiratory rate 20, blood pressure 108/65, pulse ox 94% on 2 L. GENERAL APPEARANCE: Sitting up, tired-appearing. EYES: Pupils equal. Conjunctivae pale. NECK: JVD raised. Mass not palpable. Respiratory effort increased. LUNGS: Decreased breath sounds. Some crackles. CARDIOVASCULAR: 1st and 2nd sounds normal. Mild edema. ABDOMEN: Soft, nontender. Liver and spleen not palpable. PSYCHIATRY: Answering questions. Tired. INVESTIGATIONS: White count 9.9, hemoglobin 8.9, potassium 3.7, BUN 22, creatinine 0.78. ASSESSMENT: 1. Acute congestive heart failure exacerbation from systolic dysfunction, ejection fraction 40% to 45%, underlying coronary artery disease, decompensated. The patient remains on Lasix drip. 2. Acute postop ST-elevation myocardial infarction. 3. Severe mitral and tricuspid regurgitation, nonrheumatic. 4. Left femur neck fracture followed by IM hip screw. 5. Acute postoperative blood loss anemia expected from surgery, patient did receive 3 units of blood. 6. Hypothyroidism. 7. Peripheral neuropathy, idiopathic. 8. Hyperlipidemia. 9. 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 10.Primary osteoarthritis. 11.Severe aortic stenosis, nonrheumatic. The patient has declined surgery in the past. 12.Acute hepatitis likely ischemic. PLAN: The patient continues to not do well. Remains on IV Lasix drip. Continue other medication and treatment plan. Prognosis remains guarded. Discharge, of course, has been canceled. MMODL / IJN: [id number] /
--- NOTE | 2018-08-13 22:46 | PN ---
PROGRESS NOTE DATE OF SERVICE: 08/13/2018. PRESENTING COMPLAINT: Short of breath. INTERVAL HISTORY: Patient is status post femur fracture followed by acute [place]. Did get 3 units of blood. Also remained in CHF exacerbation, has been on Lasix drip. The patient also has underlying severe aortic stenosis. Gets easily short winded. Did take 5 or 6 steps today and again got short winded. REVIEW OF SYSTEMS: Done for constitutional, cardiovascular, GI, pulmonary; relevant findings as above. CURRENT MEDICATIONS: Include Lasix drip. PHYSICAL EXAMINATION: VITAL SIGNS: Temperature 97.5, pulse 96, respirations 16, blood pressure 104/56, pulse ox 95 percent 2 L. GENERAL APPEARANCE: Sitting up on chair short of breath. EYES: Pupils equal. Conjunctivae pale. NECK: JVD not raised. Mass not palpable. Respiratory effort increased. LUNGS: Some basal crackles. Prolonged expiration and wheezing. CARDIOVASCULAR: 1st and 2nd sounds normal. Minimal edema. ABDOMEN: Soft, nontender. Liver and spleen not palpable. PSYCHIATRY: Alert but tired-appearing. INVESTIGATIONS: White count 12.6, hemoglobin 10.2, potassium 4.2, BUN 21, creatinine 0.83. Chest x-ray shows pulmonary edema. ASSESSMENT: 1. Acute congestive heart failure exacerbation from systolic dysfunction, ejection fraction 40% to 45% from underlying coronary artery disease, slow to respond. Patient remains on Lasix drip. 2. Acute postop ST-elevation myocardial infarction. The patient declines intervention acutely. 3. Severe mitral and tricuspid regurgitation, nonrheumatic. 4. Left femur neck fracture followed by IM hip screw. 5. Acute postoperative blood loss anemia expected from surgery, status post 2 units of blood. 6. Hypothyroidism. 7. Peripheral neuropathy, idiopathic. 8. Hyperlipidemia. 9. 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 10.Primary osteoarthritis. 11.Severe aortic stenosis, nonrheumatic. The patient had declined surgery. 12.Acute hepatitis, likely ischemic. 13.Possible urinary tract infection. 14.Mildly elevated D-dimer. PLAN: Given the acuteness of the patient's D-dimer mildly elevated picture, we already have a reason for the CHF, but I would like to rule out a PE. We will order the CT of the chest with PE protocol. We will also add IV ceftriaxone. Prognosis remains guarded. MMODL / IJN: [id number] /
[2018-08-14] MEDS: IPRATROPIUM-ALBUTEROL 3 ML NEB INHALATION SCH ×3 (03:40→10:59)
[2018-08-14] MEDS: PANTOPRAZOLE 40 MG TABLET PO SCH (06:20)
[2018-08-14] MEDS: HYDROcodone/APAP 5-325MG 1 EACH TAB PO PRN (06:20)
[2018-08-14] MEDS: LEVOTHYROXINE 75 MCG TAB PO SCH (06:20)
--- NOTE | 2018-08-14 07:00 | XR ---
EXAMINATION TYPE: XR chest 1V portable DATE OF EXAM: 08/14/2018 HISTORY: CHF. REFERENCE: Previous study dated 08/13/2018. FINDINGS: There is bilateral perihilar airspace disease. There is bibasilar airspace disease. Heart s ize is obscured. There is mild vascular congestion and interstitial change. IMPRESSION: 1. FINDINGS CONSISTENT WITH CONGESTIVE HEART FAILURE. 2. I COULD NOT EXCLUDE SUPERIMPOSED PNEUMONIA.
[2018-08-14 07:23] LABS: Anisocytosis Slight; HCT 33.9 % (34.0-46.0); HGB 10.7 gm/dL (11.4-16.0); Hypochromasia Moderate; MCH 31.2 pg (25.0-35.0); MCHC 31.5 g/dL (31.0-37.0); MCV 99.2 fL (80.0-100.0); Macrocytosis Slight; Mean Platelet Volume 6.8; Platelet Count 522 k/uL (150-450); RBC 3.42 m/uL (3.80-5.40); RDW 16.4 % (11.5-15.5); WBC 16.4 k/uL (3.8-10.6)
[2018-08-14] MEDS ORDERED: FUROSEMIDE 10 MG/ML 10 ML VIAL IV STA (07:38)
[2018-08-14] MEDS: FUROSEMIDE 250 MG in SODIUM CHLORIDE 0.9% 225 ML IVP SCH (07:48)
[2018-08-14 07:52] LABS: Calcium 8.4 mg/dL (8.4-10.2); Potassium 4.3 mmol/L (3.5-5.1)
[2018-08-14 11:35] VITALS: BP 103/64; PULSE 130; RESP 20; TEMP 98.2
[2018-08-14] MEDS ORDERED: MORPHINE SULFATE 2 MG/ML SYRINGE ONE (16:17)
--- NOTE | 2018-08-14 18:46 | PN ---
PROGRESS NOTE DATE OF SERVICE: August 14, 2018. INTERVAL HISTORY: The patient continues to be not doing well. She continues to be in acute respiratory distress. Dr. Mann did increase the Lasix drip to 10 and he is going to start her on oral diuretics with Aldactone. We discussed her case with her son in the room, who was told that the prognosis is very poor. MMODL / DAVIDN: [id number] /
--- NOTE | 2018-08-15 08:49 | DS ---
DISCHARGE SUMMARY DATE OF ADMISSION: 07/31/2018 DATE OF DISCHARGE: 08/14/2018 FINAL DIAGNOSES: 1. Left femur neck fracture followed by IM hip screw. 2. Acute congestive heart failure exacerbation from systolic dysfunction EF 40-45 percent from underlying coronary artery disease. 3. Acute postop ST-elevation myocardial infarction. 4. Severe mitral and tricuspid regurgitation, nonrheumatic. 5. Acute postoperative blood loss anemia expected from surgery requiring blood transfusion. 6. Hypothyroidism. 7. Peripheral neuropathy idiopathic. 8. Hyperlipidemia. 9. 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 10.Primary osteoarthritis. 11.Severe aortic stenosis nonrheumatic. The patient had declined surgery in the past. 12.Acute hepatitis likely ischemic. 13.Urinary tract infection probably from cystitis secondary to Dai catheter. HOSPITAL COURSE: This patient presented with a fracture of the femur neck initially admitted under Dr. Skelotn. Surgery was carried out. Subsequently patient had a acute myocardial infarction. The patient declined cardiac catheterization and went into congestive heart failure. The patient never really recovered from the same. Did receive Lasix, becoming more and more frail. This morning yet again the patient went back into pulmonary edema. Lasix drip was increased, but the patient was not responding to the same. The patient rather tired and exhausted. The patient will be made inpatient hospice for symptom control. DISPOSITION: Inpatient hospice for symptom control. MEDICATIONS: Morphine, oxygen for symptom control. ADVANCED CARE PLANNING: I had a discussion in the patient's room. The patient's son was present. I did explain to him that the patient's heart is failing and as we have been seeing day after day, patient has been struggling to do better. He understands the same. I did inform him that he should inform the family members that she is doing poorly and I did say that if she does get any better, then we should probably strongly consider hospice. Dr. Smith was discussed with the same and he agrees with the plan. He is and he is of the same opinion. Total time spent today on this aspect of care was more than 35 minutes. Late in the afternoon, the son called us saying that the patient was ready to go to inpatient hospice for symptom control and hospice nurse was contacted. CONSULTATIONS: Dr. Smith from Cardiology, Dr. Skelton was initial attending orthopedic physician. Copy to Dr. Carpenter. MMODL / IJN: [id number] /
== END 2018-08-14 19:32 | disposition hospice, inpatient (51) | DRG 480 ==
LOC: EC 16:09 → 4SSUR 19:18 → 2SICU 08-03 04:55 → 3SCARD 08-12 00:26
PROVIDERS: ADMIT Orthopaedic Surgery; ATTEND Hospitalist
PROC: 0QS706Z Reposition Left Upper Femur with Intramedullary Internal Fixation Device, Open Approach (ICD-10-PCS; principal; 2018-07-31)
PROC: 30233N1 Transfusion of Nonautologous Red Blood Cells into Peripheral Vein, Percutaneous Approach (ICD-10-PCS; 2018-08-03)
PROC: 5A09357 Assistance with Respiratory Ventilation, Less than 24 Consecutive Hours, Continuous Positive Airway Pressure (ICD-10-PCS; 2018-08-06)
DX: S72.142A Displaced intertrochanteric fracture of left femur, initial encounter for closed fracture (principal); I50.23 Acute on chronic systolic (congestive) heart failure; T83.511A Infection and inflammatory reaction due to indwelling urethral catheter, initial encounter; I21.4 Non-ST elevation (NSTEMI) myocardial infarction; B17.9 Acute viral hepatitis, unspecified; D62 Acute posthemorrhagic anemia; I10 Essential (primary) hypertension; E78.5 Hyperlipidemia, unspecified; E03.9 Hypothyroidism, unspecified; M17.0 Bilateral primary osteoarthritis of knee; I65.21 Occlusion and stenosis of right carotid artery; G62.9 Polyneuropathy, unspecified; I25.5 Ischemic cardiomyopathy; I27.20 Pulmonary hypertension, unspecified; I11.0 Hypertensive heart disease with heart failure; I25.10 Atherosclerotic heart disease of native coronary artery without angina pectoris; K59.00 Constipation, unspecified; M16.12 Unilateral primary osteoarthritis, left hip; N30.90 Cystitis, unspecified without hematuria; R79.1 Abnormal coagulation profile; W01.0XXA Fall on same level from slipping, tripping and stumbling without subsequent striking against object, initial encounter; Z96.649 Presence of unspecified artificial hip joint; Z96.612 Presence of left artificial shoulder joint; I65.22 Occlusion and stenosis of left carotid artery; Y84.6 Urinary catheterization as the cause of abnormal reaction of the patient, or of later complication, without mention of misadventure at the time of the procedure; I08.0 Rheumatic disorders of both mitral and aortic valves; Z79.02 Long term (current) use of antithrombotics/antiplatelets; Z79.82 Long term (current) use of aspirin; Z79.890 Hormone replacement therapy; Z79.899 Other long term (current) drug therapy; Z86.73 Personal history of transient ischemic attack (TIA), and cerebral infarction without residual deficits; I25.2 Old myocardial infarction; Y92.009 Unspecified place in unspecified non-institutional (private) residence as the place of occurrence of the external cause
CPT/HCPCS: 36410; 36415; 51702; 71045; 73502; 76937; 80048; 80053; 81001; 82306; 82550; 82553; 83735; 83880; 84100; 84484; 85025; 85027; 85379; 85610; 85730; 86850; 86900; 86901; 86920; 87077; 87086; 87186; 88307; 88311; 93005; 93306; 94640; 94660; 94760; 96374; 96375; 99285

== ENCOUNTER 2018-08-14 19:18 | Inpatient (IN) | payer MEDICAID ==
[2018-08-14] MEDS ORDERED: ATROPINE OPHTH SOLN 1% 5ML BTL SUBLINGUAL PRN (22:14)
[2018-08-14] MEDS ORDERED: LORazepam 2 MG/ML INJ IV PRN (22:14)
[2018-08-14] MEDS ORDERED: SCOPOLAMINE 1.5MG/72HR PATCH TRANSDERM SCH (22:15)
[2018-08-14] MEDS: MORPHINE SULFATE (100 MG/2 ML) 100 MG in SODIUM CHLORIDE 0.9% 100 ML IV SCH ×2 (22:23→22:25)
[2018-08-15 03:05] VITALS: PULSE 102
[2018-08-15] MEDS ORDERED: MORPHINE SULFATE (100 MG/2 ML) 100 MG in SODIUM CHLORIDE 0.9% 100 ML IV SCH (09:30)
[2018-08-15] MEDS: MORPHINE SULFATE (100 MG/2 ML) 100 MG in SODIUM CHLORIDE 0.9% 100 ML IV SCH ×2 (09:55→16:41)
[2018-08-15 19:50] VITALS: RESP 6
--- NOTE | 2018-08-16 00:58 | DS ---
DISCHARGE SUMMARY DATE OF ADMISSION: August 14, 2018. DATE PATIENT : 08/15/2018. CAUSE OF : Coronary artery disease. OTHER MEDICAL PROBLEMS: 1. Severe aortic stenosis. 2. Severe mitral and tricuspid regurgitation. HOSPITAL COURSE: This patient admitted to inpatient hospice service following acute myocardial infarction, never recovered, continued to go downhill, was put on morphine. Other medications for comfort. The patient succumbed to the underlying conditions. Family was present at the bedside. Copy to Dr. Leeanne Carpenter. [id number] / IJN: [id number] /
== END 2018-08-15 19:40 | disposition expired | DRG 951 ==
LOC: 3SCARD 19:18 → UNDODISIN 21:09
PROVIDERS: ADMIT Hospitalist; ATTEND Hospitalist
DX: Z51.5 Encounter for palliative care (principal); I25.10 Atherosclerotic heart disease of native coronary artery without angina pectoris; I08.3 Combined rheumatic disorders of mitral, aortic and tricuspid valves; I25.2 Old myocardial infarction